=== PATIENT | male | born 1935 | race African-American/Black ===

== ENCOUNTER 2020-04-11 10:31 | Emergency (ER) | payer OTHER ==
[2020-04-11 11:21] VITALS: BMI 26.6
[2020-04-11] MEDS ORDERED: SODIUM CHLORIDE 2,177 ML IV ONE (11:29)
[2020-04-11 12:07] LABS: BASO % 0.3 % (0-2.0); EOS % 0.1 % (0-4.5); HEMATOCRIT 42.1 % (35.4-49); LYMPH % 21.3 % (8-40); MCH 31.6 pg (25.7-33.7); MCHC 33.3 g/dl (32.0-35.9); MEAN PLT VOLUME 9.4 fl (7.5-11.1); MONO % 5.7 % (3.8-10.2); NEUT % 72.6 % (42.8-82.8); PLATELET COUNT 158 K/MM3 (134-434); RBC 4.44 M/mm3 (4.00-5.60); RDW 12.6 % (11.9-15.9)
[2020-04-11 12:16] LABS: INR 1.18 (0.83-1.09); PROTHROMBIN TIME (PATIENT) 14.5 SEC (9.7-13.0)
[2020-04-11 12:41] LABS: CHLORIDE 102 mmol/L (98-107); POTASSIUM 4.1 mmol/L (3.5-5.1); SODIUM 136 mmol/L (136-145)
[2020-04-11 12:43] LABS: CALCIUM 8.5 mg/dL (8.5-10.1)
[2020-04-11 12:44] LABS: ALBUMIN 3.9 g/dl (3.4-5.0); ANION GAP 7 MMOL/L (8-16); BLOOD UREA NITROGEN 21.5 mg/dL (7-18); CO2 27 mmol/L (21-32); GLUCOSE,RANDOM 105 mg/dL (74-106)
[2020-04-11 12:47] LABS: CREATININE 1.5 mg/dL (0.55-1.3); SGOT/AST 59 U/L (15-37); SGPT/ALT 54 U/L (13-61)
[2020-04-11 12:49] LABS: BILIRUBIN,TOTAL 0.6 mg/dL (0.2-1)
[2020-04-11 12:50] LABS: ALK PHOS 67 U/L (45-117)
[2020-04-11 15:27] VITALS: TEMP 99.9
[2020-04-11 18:04] VITALS: BP 161/80; PULSE 84
== END 2020-04-11 18:06 | disposition home or self-care (01) ==
LOC: JER 10:31
PROC: 3E0337Z Introduction of Electrolytic and Water Balance Substance into Peripheral Vein, Percutaneous Approach (ICD-10-PCS; principal; 2020-04-11)
DX: L97.919 Non-pressure chronic ulcer of unspecified part of right lower leg with unspecified severity (principal); L97.929 Non-pressure chronic ulcer of unspecified part of left lower leg with unspecified severity
CPT/HCPCS: 36415; 71045-TC-FY; 73590-TC-RT-FY; 73610-TC-RT-FY; 73630-TC-RT-FY; 73700-TC-RT; 80053; 83605; 84484; 85025; 85610; 85730; 86140; 86850; 86900; 86901; 87040; 93005; 93010; 99285-25

== ENCOUNTER 2020-06-15 05:05 | Day surgery (SDC) | payer OTHER ==
[2020-06-15] MEDS ORDERED: LABETALOL HCL 5 MG/1 ML (100MG/20 ML VIAL) IVPUSH ONE ×2 (10:50→11:15)
[2020-06-15 15:14] VITALS: TEMP 98.1
[2020-06-15 15:18] VITALS: BP 168/84; PULSE 65
== END 2020-06-15 15:14 | disposition home or self-care (01) ==
LOC: JRADIR 05:05
PROVIDERS: ATTEND Internal Medicine Hematology & Oncology
PROC: BW4GZZZ Ultrasonography of Pelvic Region (ICD-10-PCS; principal; 2020-06-15)
PROC: 07BH3ZX Excision of Right Inguinal Lymphatic, Percutaneous Approach, Diagnostic (ICD-10-PCS; 2020-06-15)
DX: C77.4 Secondary and unspecified malignant neoplasm of inguinal and lower limb lymph nodes (principal); C43.9 Malignant melanoma of skin, unspecified
CPT/HCPCS: 38505; 76942-TC; 87899

== ENCOUNTER 2020-06-24 04:39 | Day surgery (SDC) | payer OTHER ==
[2020-06-22 13:12] VITALS: BMI 29.1
[2020-06-24] MEDS ORDERED: MIDAZOLAM HCL 2 MG/2 ML SINGLE DOSE VIAL ONE (10:36)
[2020-06-24] MEDS ORDERED: LABETALOL HCL 5 MG/1 ML (100MG/20 ML VIAL) ONE (10:52)
[2020-06-24] MEDS ORDERED: LABETALOL HCL 5 MG/1 ML (100MG/20 ML VIAL) IVPUSH ONE (10:55)
[2020-06-24] MEDS ORDERED: MIDAZOLAM HCL 2 MG/2 ML SINGLE DOSE VIAL IVPUSH ONE (11:12)
[2020-06-24 14:00] VITALS: BP 167/83; PULSE 71; TEMP 96.9
== END 2020-06-24 13:55 | disposition home or self-care (01) ==
LOC: JRADIR 04:39
PROVIDERS: ATTEND Clinical Nurse Specialist Family Health
PROC: 02HV33Z Insertion of Infusion Device into Superior Vena Cava, Percutaneous Approach (ICD-10-PCS; principal; 2020-06-24)
DX: C43.9 Malignant melanoma of skin, unspecified (principal)
CPT/HCPCS: 36561; C1751

== ENCOUNTER 2020-06-25 07:37 | Day surgery (SDC) | payer OTHER ==
[2020-06-25] MEDS ORDERED: NIVOLUMAB 240 MG in SODIUM CHLORIDE 100 ML IVPB ONE (10:00)
[2020-06-25 11:06] LABS: BASO % 0.6 % (0-2.0); EOS % 16.6 % (0-4.5); HEMATOCRIT 41.1 % (35.4-49); HEMOGLOBIN 13.9 GM/dL (11.7-16.9); LYMPH % 37.5 % (8-40); MCH 32.6 pg (25.7-33.7); MCHC 33.9 g/dl (32.0-35.9); MEAN CELL VOLUME 96.4 fl (80-96); MEAN PLT VOLUME 8.6 fl (7.5-11.1); MONO % 7.1 % (3.8-10.2); NEUT % 38.2 % (42.8-82.8); PLATELET COUNT 219 K/MM3 (134-434); RBC 4.26 M/mm3 (4.00-5.60); RDW 13.9 % (11.9-15.9); WHITE BLOOD COUNT 6.8 K/mm3 (4.0-10.0)
[2020-06-25 11:40] LABS: ALBUMIN 3.9 g/dl (3.4-5.0); BLOOD UREA NITROGEN 10.7 mg/dL (7-18); CALCIUM 9.3 mg/dL (8.5-10.1)
[2020-06-25 11:45] LABS: BILIRUBIN,TOTAL 0.4 mg/dL (0.2-1); TOT PROT 7.6 g/dl (6.4-8.2)
[2020-06-25] MEDS ORDERED: amLODIPine BESYLATE 2.5 MG TABLET (FP) PO ONE (14:09)
[2020-06-25 18:24] VITALS: BP 158/93; PULSE 73; TEMP 97.9
[2020-06-25] MEDS ORDERED: PORTA CATH FLUSH 10 ML IVPUSH ONE (18:24)
== END 2020-06-25 14:20 | disposition home or self-care (01) ==
LOC: JONCCHEMO 07:37
PROVIDERS: ATTEND Internal Medicine Hematology & Oncology
DX: Z51.11 Encounter for antineoplastic chemotherapy (principal); C43.72 Malignant melanoma of left lower limb, including hip; C77.4 Secondary and unspecified malignant neoplasm of inguinal and lower limb lymph nodes; C79.51 Secondary malignant neoplasm of bone
CPT/HCPCS: 36415; 80053; 84439; 84443; 85025; 96413; J9299

== ENCOUNTER 2020-07-09 07:54 | Day surgery (SDC) | payer OTHER ==
[2020-07-09] MEDS ORDERED: NIVOLUMAB 240 MG in SODIUM CHLORIDE 100 ML IVPB ONE (10:00)
[2020-07-09 11:52] LABS: BASO % 0.3 % (0-2.0); EOS % 20.4 % (0-4.5); HEMATOCRIT 42.3 % (35.4-49); LYMPH % 34.3 % (8-40); MCH 32.1 pg (25.7-33.7); MCHC 33.2 g/dl (32.0-35.9); MEAN CELL VOLUME 96.7 fl (80-96); MEAN PLT VOLUME 8.6 fl (7.5-11.1); MONO % 5.6 % (3.8-10.2); NEUT % 39.4 % (42.8-82.8); PLATELET COUNT 193 K/MM3 (134-434); RBC 4.37 M/mm3 (4.00-5.60); RDW 13.4 % (11.9-15.9); WHITE BLOOD COUNT 7.1 K/mm3 (4.0-10.0)
[2020-07-09 12:12] LABS: POTASSIUM 3.9 mmol/L (3.5-5.1)
[2020-07-09 12:17] LABS: BLOOD UREA NITROGEN 14.3 mg/dL (7-18); CALCIUM 9.8 mg/dL (8.5-10.1)
[2020-07-09 12:20] LABS: CREATININE 1.1 mg/dL (0.55-1.3)
[2020-07-09 12:24] LABS: BILIRUBIN,TOTAL 0.3 mg/dL (0.2-1)
[2020-07-09 13:53] LABS: ANISOCYTOSIS 0; MACROCYTOSIS 0; PLATELET ESTIMATE NORMAL
[2020-07-09 14:14] VITALS: BP 146/82; PULSE 72; TEMP 98.8
== END 2020-07-09 14:05 | disposition home or self-care (01) ==
LOC: JONCCHEMO 07:54
PROVIDERS: ATTEND Internal Medicine Hematology & Oncology
DX: Z51.11 Encounter for antineoplastic chemotherapy (principal); C43.72 Malignant melanoma of left lower limb, including hip; C77.4 Secondary and unspecified malignant neoplasm of inguinal and lower limb lymph nodes; C79.51 Secondary malignant neoplasm of bone
CPT/HCPCS: 36415; 80053; 84439; 84443; 85025; 96413; J9299

== ENCOUNTER 2020-07-23 07:55 | Day surgery (SDC) | payer OTHER ==
[2020-07-23] MEDS ORDERED: NIVOLUMAB 240 MG in SODIUM CHLORIDE 100 ML IVPB ONE (10:00)
[2020-07-23 11:28] LABS: BASO % 0.5 % (0-2.0); EOS % 10.3 % (0-4.5); HEMATOCRIT 41.7 % (35.4-49); HEMOGLOBIN 14.3 GM/dL (11.7-16.9); LYMPH % 22.3 % (8-40); MCH 32.5 pg (25.7-33.7); MCHC 34.4 g/dl (32.0-35.9); MEAN CELL VOLUME 94.5 fl (80-96); MEAN PLT VOLUME 8.1 fl (7.5-11.1); MONO % 8.2 % (3.8-10.2); NEUT % 58.7 % (42.8-82.8); PLATELET COUNT 201 K/MM3 (134-434); RBC 4.41 M/mm3 (4.00-5.60); RDW 13.3 % (11.9-15.9); WHITE BLOOD COUNT 10.6 K/mm3 (4.0-10.0)
[2020-07-23 11:43] LABS: POTASSIUM 4.6 mmol/L (3.5-5.1)
[2020-07-23 11:45] LABS: BLOOD UREA NITROGEN 11.4 mg/dL (7-18); CALCIUM 9.5 mg/dL (8.5-10.1)
[2020-07-23 11:49] LABS: CREATININE 1.2 mg/dL (0.55-1.3)
[2020-07-23 11:50] LABS: BILIRUBIN,TOTAL 0.4 mg/dL (0.2-1); TOT PROT 7.8 g/dl (6.4-8.2)
[2020-07-23 17:41] VITALS: BP 171/93; TEMP 99
[2020-07-23 18:04] VITALS: PULSE 83
== END 2020-07-23 13:45 | disposition home or self-care (01) ==
LOC: JONCCHEMO 07:55
PROVIDERS: ATTEND Internal Medicine Hematology & Oncology
DX: Z51.11 Encounter for antineoplastic chemotherapy (principal); C43.72 Malignant melanoma of left lower limb, including hip; C77.4 Secondary and unspecified malignant neoplasm of inguinal and lower limb lymph nodes; C79.51 Secondary malignant neoplasm of bone
CPT/HCPCS: 36415; 80053; 84439; 84443; 85025; 96413; J9299

== ENCOUNTER → 2020-08-04 | Day surgery (SDC) | payer OTHER ==
[2020-08-03 12:31] VITALS: BMI 31.4
[~2020-08-04] MED LIST: MIDAZOLAM HCL 2 MG/2 ML SINGLE DOSE VIAL IVPUSH ONE; MIDAZOLAM HCL 2 MG/2 ML SINGLE DOSE VIAL ONE; SODIUM CHLORIDE 500 ML IV SCH
[2020-08-04 16:28] VITALS: PULSE 72
[2020-08-04 16:46] VITALS: BP 144/78; TEMP 98.2
== END | disposition home or self-care (01) ==
LOC: JRADIR 04:48
PROVIDERS: ATTEND Internal Medicine Hematology & Oncology
PROC: 0QB33ZX Excision of Left Pelvic Bone, Percutaneous Approach, Diagnostic (ICD-10-PCS; principal; 2020-08-04)
DX: C43.72 Malignant melanoma of left lower limb, including hip (principal); C79.51 Secondary malignant neoplasm of bone
CPT/HCPCS: 20225

== ENCOUNTER 2020-08-06 08:07 | Day surgery (SDC) | payer OTHER ==
[2020-08-06] MEDS ORDERED: NIVOLUMAB 240 MG in SODIUM CHLORIDE 100 ML IVPB ONE (10:00)
[2020-08-06 11:25] LABS: BASO % 0.3 % (0-2.0); EOS % 14.2 % (0-4.5); HEMATOCRIT 40.1 % (35.4-49); HEMOGLOBIN 13.6 GM/dL (11.7-16.9); LYMPH % 29.2 % (8-40); MCH 31.8 pg (25.7-33.7); MCHC 33.9 g/dl (32.0-35.9); MEAN CELL VOLUME 93.9 fl (80-96); MEAN PLT VOLUME 8.6 fl (7.5-11.1); MONO % 7.6 % (3.8-10.2); NEUT % 48.7 % (42.8-82.8); PLATELET COUNT 186 K/MM3 (134-434); RBC 4.27 M/mm3 (4.00-5.60); RDW 13.4 % (11.9-15.9); WHITE BLOOD COUNT 7.2 K/mm3 (4.0-10.0)
[2020-08-06 11:47] LABS: ALBUMIN 3.9 g/dl (3.4-5.0); BLOOD UREA NITROGEN 13.5 mg/dL (7-18)
[2020-08-06 11:50] LABS: CREATININE 1.1 mg/dL (0.55-1.3)
[2020-08-06 11:52] LABS: BILIRUBIN,TOTAL 0.4 mg/dL (0.2-1); TOT PROT 7.6 g/dl (6.4-8.2)
[2020-08-06 16:33] VITALS: BP 156/78; PULSE 71; TEMP 98.2
[2020-08-06] MEDS ORDERED: PORTA CATH FLUSH 10 ML IVPUSH ONE (16:33)
== END 2020-08-06 13:20 | disposition home or self-care (01) ==
LOC: JONCCHEMO 08:07
PROVIDERS: ATTEND Internal Medicine Hematology & Oncology
DX: Z51.11 Encounter for antineoplastic chemotherapy (principal); C43.72 Malignant melanoma of left lower limb, including hip; C79.51 Secondary malignant neoplasm of bone; C77.4 Secondary and unspecified malignant neoplasm of inguinal and lower limb lymph nodes
CPT/HCPCS: 36415; 80053; 84439; 84443; 85025; 96413; J9299

== ENCOUNTER 2020-08-26 07:17 | Day surgery (SDC) | payer OTHER ==
[~2020-08-26 07:17] MED LIST changes: -MIDAZOLAM HCL 2 MG/2 ML SINGLE DOSE VIAL IVPUSH ONE; -MIDAZOLAM HCL 2 MG/2 ML SINGLE DOSE VIAL ONE; +NIVOLUMAB 240 MG in SODIUM CHLORIDE 100 ML IVPB ONE; -SODIUM CHLORIDE 500 ML IV SCH
[2020-08-26 14:28] LABS: BASO % 0.6 % (0-2.0); EOS % 20.2 % (0-4.5); HEMATOCRIT 41.6 % (35.4-49); HEMOGLOBIN 14.3 GM/dL (11.7-16.9); LYMPH % 29.4 % (8-40); MCH 31.7 pg (25.7-33.7); MCHC 34.4 g/dl (32.0-35.9); MEAN CELL VOLUME 92.2 fl (80-96); MEAN PLT VOLUME 8.6 fl (7.5-11.1); MONO % 9.4 % (3.8-10.2); NEUT % 40.4 % (42.8-82.8); PLATELET COUNT 213 K/MM3 (134-434); RBC 4.51 M/mm3 (4.00-5.60); RDW 13.1 % (11.9-15.9); WHITE BLOOD COUNT 10.8 K/mm3 (4.0-10.0)
[2020-08-26 14:58] LABS: BLOOD UREA NITROGEN 15.6 mg/dL (7-18); CALCIUM 9.2 mg/dL (8.5-10.1)
[2020-08-26 14:59] LABS: ALBUMIN 4.2 g/dl (3.4-5.0)
[2020-08-26 15:02] LABS: CREATININE 1.2 mg/dL (0.55-1.3)
[2020-08-26 15:03] LABS: BILIRUBIN,TOTAL 0.4 mg/dL (0.2-1)
[2020-08-26 15:03] LABS: ANISOCYTOSIS 0; HELMET CELLS 0; HOWELL-JOLLY BODIES 0; MACROCYTOSIS 0; OVALOCYTE 0; PLATELET ESTIMATE NORMAL; ROULEAU 0; SICKELED CELLS 0; TARGET CELLS 0; TEAR DROP CELLS 0; TOXIC GRANULATION 0
[2020-08-26] MEDS ORDERED: NIVOLUMAB 240 MG in SODIUM CHLORIDE 100 ML IVPB ONE (15:30)
[2020-08-26 16:22] VITALS: TEMP 98.4
[2020-08-26 16:33] VITALS: BP 152/85; PULSE 74
[2020-08-26] MEDS ORDERED: PORTA CATH FLUSH 10 ML IVPUSH ONE (16:35)
== END 2020-08-26 16:47 | disposition home or self-care (01) ==
LOC: JONCCHEMO 07:17
PROVIDERS: ATTEND Internal Medicine Hematology & Oncology
DX: Z51.11 Encounter for antineoplastic chemotherapy (principal); C43.72 Malignant melanoma of left lower limb, including hip; C79.51 Secondary malignant neoplasm of bone; C77.4 Secondary and unspecified malignant neoplasm of inguinal and lower limb lymph nodes
CPT/HCPCS: 36415; 80053; 84439; 84443; 85025; 96413; J9299

== ENCOUNTER 2020-09-10 07:17 | Day surgery (SDC) | payer OTHER ==
[2020-09-10] MEDS ORDERED: NIVOLUMAB 240 MG in SODIUM CHLORIDE 100 ML IVPB ONE ×2 (12:00→13:30)
[2020-09-10 13:13] LABS: BASO % 0.3 % (0-2.0); EOS % 19.2 % (0-4.5); HEMATOCRIT 39.3 % (35.4-49); HEMOGLOBIN 13.4 GM/dL (11.7-16.9); LYMPH % 29.9 % (8-40); MCH 31.7 pg (25.7-33.7); MEAN CELL VOLUME 93.1 fl (80-96); MEAN PLT VOLUME 8.8 fl (7.5-11.1); MONO % 7.8 % (3.8-10.2); NEUT % 42.8 % (42.8-82.8); PLATELET COUNT 186 K/MM3 (134-434); RBC 4.22 M/mm3 (4.00-5.60); WHITE BLOOD COUNT 7.7 K/mm3 (4.0-10.0)
[2020-09-10 13:20] LABS: BLOOD UREA NITROGEN 14.5 mg/dL (7-18)
[2020-09-10 13:24] LABS: CREATININE 1.2 mg/dL (0.55-1.3)
[2020-09-10 13:25] LABS: BILIRUBIN,TOTAL 0.6 mg/dL (0.2-1); TOT PROT 7.9 g/dl (6.4-8.2)
[2020-09-10 15:48] VITALS: BP 146/78; PULSE 73; TEMP 98.2
== END 2020-09-10 15:00 | disposition home or self-care (01) ==
LOC: JONCCHEMO 07:17
PROVIDERS: ATTEND Internal Medicine Hematology & Oncology
DX: Z51.11 Encounter for antineoplastic chemotherapy (principal); C43.72 Malignant melanoma of left lower limb, including hip; C79.51 Secondary malignant neoplasm of bone; C77.4 Secondary and unspecified malignant neoplasm of inguinal and lower limb lymph nodes
CPT/HCPCS: 36415; 80053; 84439; 84443; 85025; 96413; J9299

== ENCOUNTER 2020-09-24 08:31 | Day surgery (SDC) | payer OTHER ==
[2020-09-24] MEDS ORDERED: NIVOLUMAB 240 MG in SODIUM CHLORIDE 100 ML IVPB ONE ×2 (10:00→14:00)
[2020-09-24 12:33] LABS: BASO % 0.1 % (0-2.0); EOS % 17.6 % (0-4.5); HEMOGLOBIN 13.2 GM/dL (11.7-16.9); LYMPH % 28.8 % (8-40); MCH 31.6 pg (25.7-33.7); MCHC 33.8 g/dl (32.0-35.9); MEAN CELL VOLUME 93.4 fl (80-96); MEAN PLT VOLUME 8.4 fl (7.5-11.1); MONO % 9.8 % (3.8-10.2); NEUT % 43.7 % (42.8-82.8); PLATELET COUNT 256 K/MM3 (134-434); RBC 4.17 M/mm3 (4.00-5.60); WHITE BLOOD COUNT 8.6 K/mm3 (4.0-10.0)
[2020-09-24 13:04] LABS: CALCIUM 9.2 mg/dL (8.5-10.1)
[2020-09-24 13:05] LABS: BLOOD UREA NITROGEN 13.5 mg/dL (7-18)
[2020-09-24 13:08] LABS: CREATININE 1.3 mg/dL (0.55-1.3)
[2020-09-24 13:10] LABS: BILIRUBIN,TOTAL 0.5 mg/dL (0.2-1); TOT PROT 7.9 g/dl (6.4-8.2)
[2020-09-24 18:22] VITALS: PULSE 85; TEMP 98.4
[2020-09-24 18:26] VITALS: BP 116/71
== END 2020-09-24 14:20 | disposition home or self-care (01) ==
LOC: JONCCHEMO 08:31
PROVIDERS: ATTEND Internal Medicine Hematology & Oncology
DX: Z51.11 Encounter for antineoplastic chemotherapy (principal); C43.72 Malignant melanoma of left lower limb, including hip; C79.51 Secondary malignant neoplasm of bone; C77.4 Secondary and unspecified malignant neoplasm of inguinal and lower limb lymph nodes
CPT/HCPCS: 36415; 80053; 84439; 84443; 85025; 96413; J9299

== ENCOUNTER 2020-10-08 07:07 | Day surgery (SDC) | payer OTHER ==
[2020-10-08] MEDS ORDERED: NIVOLUMAB 240 MG in SODIUM CHLORIDE 100 ML IVPB ONE (10:00)
[2020-10-08 12:19] LABS: BASO % 0.1 % (0-2.0); EOS % 19.6 % (0-4.5); HEMATOCRIT 39.9 % (35.4-49); HEMOGLOBIN 13.3 GM/dL (11.7-16.9); LYMPH % 28.9 % (8-40); MCHC 33.3 g/dl (32.0-35.9); MEAN PLT VOLUME 8.2 fl (7.5-11.1); MONO % 8.2 % (3.8-10.2); NEUT % 43.2 % (42.8-82.8); PLATELET COUNT 270 10^3/uL (134-434); RBC 4.29 M/mm3 (4.00-5.60); WHITE BLOOD COUNT 8.8 K/mm3 (4.0-10.0)
[2020-10-08 12:40] LABS: CALCIUM 9.1 mg/dL (8.5-10.1)
[2020-10-08 12:41] LABS: ALBUMIN 3.9 g/dl (3.4-5.0); BLOOD UREA NITROGEN 14.4 mg/dL (7-18)
[2020-10-08 12:44] LABS: CREATININE 1.2 mg/dL (0.55-1.3)
[2020-10-08 12:45] LABS: BILIRUBIN,TOTAL 0.5 mg/dL (0.2-1); TOT PROT 7.9 g/dl (6.4-8.2)
[2020-10-08 16:33] VITALS: BP 129/75; PULSE 75; TEMP 98.8
[2020-10-08] MEDS ORDERED: PORTA CATH FLUSH 10 ML IVPUSH ONE (16:33)
[2020-10-10 14:11] LABS: LIVER KIDNEY MICROSOMIAL AB <20.1 Units (0.0-20.0)
[2020-10-13 10:07] LABS: HEP B CORE AB, TOT Negative (Negative)
== END 2020-10-08 15:05 | disposition home or self-care (01) ==
LOC: JONCCHEMO 07:07
PROVIDERS: ATTEND Internal Medicine Hematology & Oncology
DX: Z51.11 Encounter for antineoplastic chemotherapy (principal); C43.72 Malignant melanoma of left lower limb, including hip; C79.51 Secondary malignant neoplasm of bone; C77.4 Secondary and unspecified malignant neoplasm of inguinal and lower limb lymph nodes
CPT/HCPCS: 36415; 80053; 82550; 82553; 82977; 83520; 84439; 84443; 85025; 86038; 86256; 86376; 86704; 86706; 86707; 86708; 86709; 87340; 96413; J9299

== ENCOUNTER 2020-10-22 07:04 | Day surgery (SDC) | payer OTHER ==
[2020-10-22] MEDS ORDERED: NIVOLUMAB 240 MG in SODIUM CHLORIDE 100 ML IVPB ONE (10:00)
[2020-10-22 11:19] LABS: BASO % 0.2 % (0-2.0); HEMATOCRIT 38.9 % (35.4-49); HEMOGLOBIN 12.8 GM/dL (11.7-16.9); LYMPH % 19.9 % (8-40); MCH 30.7 pg (25.7-33.7); MCHC 32.8 g/dl (32.0-35.9); MEAN CELL VOLUME 93.7 fl (80-96); MEAN PLT VOLUME 8.2 fl (7.5-11.1); MONO % 9.3 % (3.8-10.2); NEUT % 55.6 % (42.8-82.8); PLATELET COUNT 246 10^3/uL (134-434); RBC 4.16 M/mm3 (4.00-5.60); RDW 13.2 % (11.9-15.9); WHITE BLOOD COUNT 6.1 K/mm3 (4.0-10.0)
[2020-10-22 11:38] LABS: ALBUMIN 3.7 g/dl (3.4-5.0)
[2020-10-22 11:39] LABS: BLOOD UREA NITROGEN 18.8 mg/dL (7-18)
[2020-10-22 11:42] LABS: CREATININE 1.2 mg/dL (0.55-1.3)
[2020-10-22 11:43] LABS: BILIRUBIN,TOTAL 1.5 mg/dL (0.2-1); TOT PROT 7.8 g/dl (6.4-8.2)
[2020-10-22] MEDS ORDERED: ALTEPLASE 2 MG VIAL IVPUSH ONE (12:00)
[2020-10-22] MEDS ORDERED: methylPREDNISolone NA SUCC 40 MG/1 ML VIAL IVPB ONE (12:32)
[2020-10-22] MEDS ORDERED: PANTOPRAZOLE SODIUM 40 MG VIAL IVPB ONE (12:33)
[2020-10-22] MEDS ORDERED: PANTOPRAZOLE SODIUM 40 MG VIAL IVPUSH ONE (13:00)
[2020-10-22 17:29] VITALS: PULSE 69; TEMP 98.3
[2020-10-22 17:52] VITALS: BP 120/64
== END 2020-10-22 13:45 | disposition home or self-care (01) ==
LOC: JONCCHEMO 07:04
PROVIDERS: ATTEND Internal Medicine Hematology & Oncology
PROC: 3E043NZ Introduction of Analgesics, Hypnotics, Sedatives into Central Vein, Percutaneous Approach (ICD-10-PCS; principal; 2020-10-22)
PROC: 3E043GC Introduction of Other Therapeutic Substance into Central Vein, Percutaneous Approach (ICD-10-PCS; 2020-10-22)
DX: Z76.89 Persons encountering health services in other specified circumstances (principal); C43.9 Malignant melanoma of skin, unspecified; Z86.16 Personal history of COVID-19; I10 Essential (primary) hypertension; E78.00 Pure hypercholesterolemia, unspecified; Z86.711 Personal history of pulmonary embolism
CPT/HCPCS: 36415; 80053; 85025; 96374; 96375; J2997

== ENCOUNTER → 2020-11-05 | Day surgery (SDC) | payer OTHER ==
[2020-11-05 10:36] LABS: BASO % 0.7 % (0-2.0); EOS % 1.4 % (0-4.5); HEMATOCRIT 43.6 % (35.4-49); HEMOGLOBIN 14.3 GM/dL (11.7-16.9); LYMPH % 17.8 % (8-40); MCHC 32.7 g/dl (32.0-35.9); MEAN CELL VOLUME 94.7 fl (80-96); MEAN PLT VOLUME 8.6 fl (7.5-11.1); MONO % 5.6 % (3.8-10.2); NEUT % 74.5 % (42.8-82.8); PLATELET COUNT 276 10^3/uL (134-434); RBC 4.61 M/mm3 (4.00-5.60); RDW 13.5 % (11.9-15.9); WHITE BLOOD COUNT 11.7 K/mm3 (4.0-10.0)
[2020-11-05 10:56] LABS: CALCIUM 9.1 mg/dL (8.5-10.1)
[2020-11-05 10:57] LABS: ALBUMIN 3.8 g/dl (3.4-5.0)
[2020-11-05 11:00] LABS: CREATININE 1.1 mg/dL (0.55-1.3)
[2020-11-05 11:01] LABS: BILIRUBIN,TOTAL 0.4 mg/dL (0.2-1)
[2020-11-05 11:02] LABS: TOT PROT 7.7 g/dl (6.4-8.2)
== END | disposition home or self-care (01) ==
LOC: JONCCHEMO 05:12
PROVIDERS: ATTEND Internal Medicine Hematology & Oncology
DX: Z53.8 Procedure and treatment not carried out for other reasons (principal)
CPT/HCPCS: 36415; 80053; 85025; 96365

== ENCOUNTER 2021-01-11 23:37 | Inpatient (IN) | payer OTHER ==
[2021-01-12] MEDS ORDERED: methylPREDNISolone NA SUCC 125 MG/2 ML VIAL IVPB ONE (01:09)
[2021-01-12] MEDS ORDERED: methylPREDNISolone NA SUCC 125 MG/2 ML VIAL ONE (01:41)
[2021-01-12 02:23] LABS: BASO % 0.1 % (0-2.0); HEMOGLOBIN 12.7 GM/dL (11.7-16.9); LYMPH % 10.1 % (8-40); MCH 33.1 pg (25.7-33.7); MCHC 34.3 g/dl (32.0-35.9); MEAN CELL VOLUME 96.6 fl (80-96); MEAN PLT VOLUME 7.8 fl (7.5-11.1); MONO % 5.9 % (3.8-10.2); NEUT % 83.9 % (42.8-82.8); PLATELET COUNT 154 10^3/uL (134-434); RBC 3.83 M/mm3 (4.00-5.60); RDW 14.9 % (11.9-15.9); WHITE BLOOD COUNT 10.6 K/mm3 (4.0-10.0)
[2021-01-12 02:42] LABS: CALCIUM 9.1 mg/dL (8.5-10.1)
[2021-01-12 02:43] LABS: ALBUMIN 3.3 g/dl (3.4-5.0); BLOOD UREA NITROGEN 27.4 mg/dL (7-18)
[2021-01-12 02:46] LABS: CREATININE 1.1 mg/dL (0.55-1.3)
[2021-01-12 02:47] LABS: BILIRUBIN,TOTAL 1.5 mg/dL (0.2-1); TOT PROT 6.9 g/dl (6.4-8.2)
[2021-01-12 04:21] LABS: URINE APPEARANCE CLEAR; URINE COLOR DK YELLOW; URINE GLUCOSE (UA) 100 (NEGATIVE)
[2021-01-12 04:22] LABS: PH,URINE 5.5 (5.0-8.0); URINE BILIRUBIN SMALL (NEGATIVE); URINE KETONE NEGATIVE (NEGATIVE); URINE PROTEIN 30 (NEGATIVE)
[2021-01-12 04:23] LABS: URINE LEUK ESTERASE NEGATIVE (NEGATIVE); URINE NITRITE NEGATIVE (NEGATIVE); URINE UROBILINOGEN 4.0 E.U/dl mg/dL (0.2-1.0)
[2021-01-12] MEDS ORDERED: amLODIPine BESYLATE 5 MG TABLET (FP) ONE (10:33)
[2021-01-12] MEDS ORDERED: ASPIRIN 81 MG CHEWABLE TABLETS ONE (10:33)
[2021-01-12] MEDS ORDERED: LISINOPRIL 20 MG TABLET ONE (10:33)
[2021-01-12] MEDS ORDERED: ENOXAPARIN NA (PORCINE) 40 MG/0.4 ML DISP.SYRIN SQ ONE (10:34)
[2021-01-12] MEDS: ENOXAPARIN NA (PORCINE) 40 MG/0.4 ML DISP.SYRIN SQ SCH (10:57)
[2021-01-12] MEDS: ASPIRIN 81 MG CHEWABLE TABLETS PO SCH (10:57)
[2021-01-12] MEDS: LISINOPRIL 20 MG TABLET PO SCH (10:58)
[2021-01-12] MEDS: amLODIPine BESYLATE 5 MG TABLET (FP) PO SCH (10:58)
[2021-01-12 11:46] LABS: HEMATOCRIT 38.3 % (35.4-49); HEMOGLOBIN 13.3 GM/dL (11.7-16.9); MCH 33.3 pg (25.7-33.7); MCHC 34.6 g/dl (32.0-35.9); PLATELET COUNT 178 10^3/uL (134-434); RBC 3.99 M/mm3 (4.00-5.60); RDW 14.7 % (11.9-15.9); WHITE BLOOD COUNT 13.9 K/mm3 (4.0-10.0)
[2021-01-12 12:06] LABS: PROTHROMBIN TIME (PATIENT) 12.3 SEC (9.7-13.0)
[2021-01-12 12:08] LABS: ACTIVATED PTT 22.3 SECONDS (25.2-36.5)
[2021-01-12 13:34] VITALS: BMI 29.6
[2021-01-12 14:34] LABS: CALCIUM 9.2 mg/dL (8.5-10.1); MAGNESIUM 2.5 mg/dL (1.8-2.4)
[2021-01-12 14:35] LABS: ALBUMIN 3.6 g/dl (3.4-5.0); BLOOD UREA NITROGEN 24.8 mg/dL (7-18)
[2021-01-12 14:38] LABS: BILIRUBIN,DIRECT 0.9 mg/dL (0.0-0.2); PHOSPHOROUS 3.2 mg/dL (2.5-4.9)
[2021-01-12 14:39] LABS: TOT PROT 7.2 g/dl (6.4-8.2)
[2021-01-12 14:40] LABS: BILIRUBIN,TOTAL 1.2 mg/dL (0.2-1)
[2021-01-13 08:30] LABS: BASO % 0.1 % (0-2.0); HEMOGLOBIN 12.2 GM/dL (11.7-16.9); LYMPH % 11.7 % (8-40); MCH 33.1 pg (25.7-33.7); MEAN CELL VOLUME 97.4 fl (80-96); MEAN PLT VOLUME 8.6 fl (7.5-11.1); MONO % 6.1 % (3.8-10.2); NEUT % 82.1 % (42.8-82.8); PLATELET COUNT 160 10^3/uL (134-434); RBC 3.69 M/mm3 (4.00-5.60); RDW 14.9 % (11.9-15.9); WHITE BLOOD COUNT 8.6 K/mm3 (4.0-10.0)
[2021-01-13 08:35] LABS: INR 0.97 (0.83-1.09); PROTHROMBIN TIME (PATIENT) 11.9 SEC (9.7-13.0)
[2021-01-13 08:55] LABS: CALCIUM 8.6 mg/dL (8.5-10.1)
[2021-01-13 08:56] LABS: ALBUMIN 2.9 g/dl (3.4-5.0); BLOOD UREA NITROGEN 24.5 mg/dL (7-18); MAGNESIUM 2.4 mg/dL (1.8-2.4)
[2021-01-13 08:57] LABS: BILIRUBIN,DIRECT 0.7 mg/dL (0.0-0.2)
[2021-01-13 08:58] LABS: CREATININE 0.9 mg/dL (0.55-1.3)
[2021-01-13 08:59] LABS: BILIRUBIN,TOTAL 1.7 mg/dL (0.2-1); TOT PROT 6.2 g/dl (6.4-8.2)
[2021-01-13] MEDS ORDERED: predniSONE 20 MG TABLET (UD) PO SCH (10:00)
[2021-01-13] MEDS: ENOXAPARIN NA (PORCINE) 40 MG/0.4 ML DISP.SYRIN SQ SCH (11:08)
[2021-01-13] MEDS: methylPREDNISolone NA SUCC 40 MG/1 ML VIAL IVPUSH SCH ×2 (11:08→21:03)
[2021-01-13] MEDS: PANTOPRAZOLE 40 MG TABLET PO SCH (11:09)
[2021-01-13] MEDS: ASPIRIN 81 MG CHEWABLE TABLETS PO SCH (11:09)
[2021-01-13] MEDS: LISINOPRIL 20 MG TABLET PO SCH (11:09)
[2021-01-13] MEDS: amLODIPine BESYLATE 5 MG TABLET (FP) PO SCH (11:09)
[2021-01-13] MEDS ORDERED: PT OWN MED DRAWER 7, Y5N ONE (17:19)
[2021-01-13] MEDS: ATOVAQUONE 750 MG/5 ML (UNIT-DOSE PACKAGING) PO SCH (17:26)
[2021-01-14 08:27] LABS: BASO % 0.1 % (0-2.0); HEMATOCRIT 36.2 % (35.4-49); HEMOGLOBIN 12.4 GM/dL (11.7-16.9); LYMPH % 14.4 % (8-40); MCH 33.2 pg (25.7-33.7); MCHC 34.1 g/dl (32.0-35.9); MEAN CELL VOLUME 97.2 fl (80-96); MEAN PLT VOLUME 8.6 fl (7.5-11.1); MONO % 4.3 % (3.8-10.2); NEUT % 81.2 % (42.8-82.8); PLATELET COUNT 163 10^3/uL (134-434); RBC 3.72 M/mm3 (4.00-5.60); RDW 14.6 % (11.9-15.9); WHITE BLOOD COUNT 7.9 K/mm3 (4.0-10.0)
[2021-01-14 08:31] LABS: INR 0.99 (0.83-1.09); PROTHROMBIN TIME (PATIENT) 12.2 SEC (9.7-13.0)
[2021-01-14 08:44] LABS: CALCIUM 8.6 mg/dL (8.5-10.1)
[2021-01-14 08:45] LABS: MAGNESIUM 2.6 mg/dL (1.8-2.4)
[2021-01-14 08:47] LABS: BILIRUBIN,DIRECT 0.9 mg/dL (0.0-0.2)
[2021-01-14 08:48] LABS: PHOSPHOROUS 3.8 mg/dL (2.5-4.9)
[2021-01-14 08:49] LABS: BILIRUBIN,TOTAL 1.5 mg/dL (0.2-1); TOT PROT 6.4 g/dl (6.4-8.2)
[2021-01-14] MEDS: LISINOPRIL 20 MG TABLET PO SCH (10:16)
[2021-01-14] MEDS: amLODIPine BESYLATE 5 MG TABLET (FP) PO SCH (10:16)
[2021-01-14] MEDS: methylPREDNISolone NA SUCC 40 MG/1 ML VIAL IVPB SCH ×2 (10:16→21:02)
[2021-01-14] MEDS: PANTOPRAZOLE 40 MG TABLET PO SCH (10:16)
[2021-01-14] MEDS: ASPIRIN 81 MG CHEWABLE TABLETS PO SCH (10:16)
[2021-01-14] MEDS: ENOXAPARIN NA (PORCINE) 40 MG/0.4 ML DISP.SYRIN SQ SCH (10:16)
[2021-01-14] MEDS: ATOVAQUONE 750 MG/5 ML (UNIT-DOSE PACKAGING) PO SCH (17:07)
[2021-01-15 07:43] LABS: HEMATOCRIT 36.8 % (35.4-49); HEMOGLOBIN 12.4 GM/dL (11.7-16.9); MCH 33.1 pg (25.7-33.7); MCHC 33.8 g/dl (32.0-35.9); MEAN CELL VOLUME 98.2 fl (80-96); MEAN PLT VOLUME 8.7 fl (7.5-11.1); PLATELET COUNT 187 10^3/uL (134-434); RBC 3.74 M/mm3 (4.00-5.60); RDW 15.1 % (11.9-15.9); WHITE BLOOD COUNT 9.6 K/mm3 (4.0-10.0)
[2021-01-15 07:53] LABS: CALCIUM 8.7 mg/dL (8.5-10.1)
[2021-01-15 07:54] LABS: ALBUMIN 2.9 g/dl (3.4-5.0); BLOOD UREA NITROGEN 25.1 mg/dL (7-18); MAGNESIUM 2.7 mg/dL (1.8-2.4)
[2021-01-15 07:56] LABS: BILIRUBIN,DIRECT 0.9 mg/dL (0.0-0.2)
[2021-01-15 07:57] LABS: PHOSPHOROUS 3.5 mg/dL (2.5-4.9)
[2021-01-15 07:58] LABS: BILIRUBIN,TOTAL 1.4 mg/dL (0.2-1); TOT PROT 6.1 g/dl (6.4-8.2)
[2021-01-15 08:04] LABS: INR 0.96 (0.83-1.09); PROTHROMBIN TIME (PATIENT) 11.8 SEC (9.7-13.0)
[2021-01-15] MEDS: amLODIPine BESYLATE 5 MG TABLET (FP) PO SCH (11:02)
[2021-01-15] MEDS: ENOXAPARIN NA (PORCINE) 40 MG/0.4 ML DISP.SYRIN SQ SCH (11:02)
[2021-01-15] MEDS: LISINOPRIL 20 MG TABLET PO SCH (11:03)
[2021-01-15] MEDS: PANTOPRAZOLE 40 MG TABLET PO SCH (11:03)
[2021-01-15] MEDS: ASPIRIN 81 MG CHEWABLE TABLETS PO SCH (11:03)
[2021-01-15] MEDS: methylPREDNISolone NA SUCC 40 MG/1 ML VIAL IVPB SCH ×2 (11:03→21:22)
[2021-01-15] MEDS ORDERED: PT OWN MED DRAWER 7, Y5N ONE ×3 (14:48→18:13)
[2021-01-15] MEDS: MYCOPHENOLATE MOFETIL 250 MG CAPSULE PO SCH ×2 (16:17→21:22)
[2021-01-15] MEDS: ATOVAQUONE 750 MG/5 ML (UNIT-DOSE PACKAGING) PO SCH (18:21)
[2021-01-16] MEDS ORDERED: PT OWN MED DRAWER 7, Y5N ONE ×3 (08:39→21:01)
[2021-01-16] MEDS: amLODIPine BESYLATE 5 MG TABLET (FP) PO SCH (09:13)
[2021-01-16] MEDS: ENOXAPARIN NA (PORCINE) 40 MG/0.4 ML DISP.SYRIN SQ SCH (09:13)
[2021-01-16] MEDS: LISINOPRIL 20 MG TABLET PO SCH (09:13)
[2021-01-16] MEDS: PANTOPRAZOLE 40 MG TABLET PO SCH (09:13)
[2021-01-16] MEDS: ASPIRIN 81 MG CHEWABLE TABLETS PO SCH (09:14)
[2021-01-16] MEDS: MYCOPHENOLATE MOFETIL 250 MG CAPSULE PO SCH ×2 (09:14→21:05)
[2021-01-16] MEDS: methylPREDNISolone NA SUCC 40 MG/1 ML VIAL IVPB SCH ×2 (10:32→21:04)
[2021-01-16 11:07] LABS: HEMOGLOBIN 13.8 GM/dL (11.7-16.9); MCH 33.3 pg (25.7-33.7); MCHC 33.8 g/dl (32.0-35.9); MEAN CELL VOLUME 98.7 fl (80-96); MEAN PLT VOLUME 8.5 fl (7.5-11.1); PLATELET COUNT 286 10^3/uL (134-434); RBC 4.15 M/mm3 (4.00-5.60); RDW 14.8 % (11.9-15.9); WHITE BLOOD COUNT 15.2 K/mm3 (4.0-10.0)
[2021-01-16 11:12] LABS: INR 0.93 (0.83-1.09); PROTHROMBIN TIME (PATIENT) 11.4 SEC (9.7-13.0)
[2021-01-16 11:30] LABS: ALBUMIN 3.4 g/dl (3.4-5.0); BLOOD UREA NITROGEN 23.2 mg/dL (7-18); CALCIUM 9.2 mg/dL (8.5-10.1); MAGNESIUM 2.7 mg/dL (1.8-2.4)
[2021-01-16 11:33] LABS: CREATININE 1.1 mg/dL (0.55-1.3); PHOSPHOROUS 3.1 mg/dL (2.5-4.9)
[2021-01-16 11:35] LABS: BILIRUBIN,TOTAL 2.2 mg/dL (0.2-1); TOT PROT 7.1 g/dl (6.4-8.2)
[2021-01-16] MEDS: ATOVAQUONE 750 MG/5 ML (UNIT-DOSE PACKAGING) PO SCH (17:46)
[2021-01-17 09:03] LABS: ALBUMIN 2.8 g/dl (3.4-5.0); BLOOD UREA NITROGEN 20.9 mg/dL (7-18); CALCIUM 8.5 mg/dL (8.5-10.1); MAGNESIUM 2.8 mg/dL (1.8-2.4)
[2021-01-17 09:06] LABS: CREATININE 0.9 mg/dL (0.55-1.3)
[2021-01-17 09:08] LABS: BILIRUBIN,TOTAL 1.8 mg/dL (0.2-1); PHOSPHOROUS 3.2 mg/dL (2.5-4.9); TOT PROT 6.1 g/dl (6.4-8.2)
[2021-01-17 09:10] LABS: HEMATOCRIT 36.7 % (35.4-49); HEMOGLOBIN 12.5 GM/dL (11.7-16.9); MCH 33.6 pg (25.7-33.7); MCHC 34.2 g/dl (32.0-35.9); MEAN CELL VOLUME 98.4 fl (80-96); MEAN PLT VOLUME 8.5 fl (7.5-11.1); PLATELET COUNT 220 10^3/uL (134-434); RBC 3.72 M/mm3 (4.00-5.60); RDW 14.8 % (11.9-15.9); WHITE BLOOD COUNT 9.4 K/mm3 (4.0-10.0)
[2021-01-17 09:58] LABS: INR 0.92 (0.83-1.09); PROTHROMBIN TIME (PATIENT) 11.3 SEC (9.7-13.0)
[2021-01-17] MEDS ORDERED: PT OWN MED DRAWER 7, Y5N ONE (10:26)
[2021-01-17] MEDS: methylPREDNISolone NA SUCC 40 MG/1 ML VIAL IVPB SCH ×2 (10:38→21:37)
[2021-01-17] MEDS: ENOXAPARIN NA (PORCINE) 40 MG/0.4 ML DISP.SYRIN SQ SCH (10:39)
[2021-01-17] MEDS: amLODIPine BESYLATE 5 MG TABLET (FP) PO SCH (10:39)
[2021-01-17] MEDS: LISINOPRIL 20 MG TABLET PO SCH (10:39)
[2021-01-17] MEDS: MYCOPHENOLATE MOFETIL 250 MG CAPSULE PO SCH ×2 (10:39→21:37)
[2021-01-17] MEDS: PANTOPRAZOLE 40 MG TABLET PO SCH (10:39)
[2021-01-17] MEDS: ASPIRIN 81 MG CHEWABLE TABLETS PO SCH (10:39)
[2021-01-17] MEDS: ATOVAQUONE 750 MG/5 ML (UNIT-DOSE PACKAGING) PO SCH (17:09)
[2021-01-18 07:43] LABS: HEMATOCRIT 36.7 % (35.4-49); HEMOGLOBIN 12.6 GM/dL (11.7-16.9); MCH 33.5 pg (25.7-33.7); MCHC 34.5 g/dl (32.0-35.9); MEAN CELL VOLUME 97.3 fl (80-96); MEAN PLT VOLUME 8.3 fl (7.5-11.1); PLATELET COUNT 208 10^3/uL (134-434); RBC 3.77 M/mm3 (4.00-5.60); RDW 15.1 % (11.9-15.9); WHITE BLOOD COUNT 9.8 K/mm3 (4.0-10.0)
[2021-01-18 07:54] LABS: INR 0.92 (0.83-1.09); PROTHROMBIN TIME (PATIENT) 11.3 SEC (9.7-13.0)
[2021-01-18 08:05] LABS: CALCIUM 8.3 mg/dL (8.5-10.1)
[2021-01-18 08:06] LABS: ALBUMIN 2.8 g/dl (3.4-5.0); BLOOD UREA NITROGEN 23.5 mg/dL (7-18); MAGNESIUM 2.8 mg/dL (1.8-2.4)
[2021-01-18 08:09] LABS: CREATININE 0.9 mg/dL (0.55-1.3); PHOSPHOROUS 2.4 mg/dL (2.5-4.9)
[2021-01-18 08:10] LABS: BILIRUBIN,TOTAL 1.8 mg/dL (0.2-1); TOT PROT 6.2 g/dl (6.4-8.2)
[2021-01-18] MEDS: ENOXAPARIN NA (PORCINE) 40 MG/0.4 ML DISP.SYRIN SQ SCH (09:43)
[2021-01-18] MEDS: methylPREDNISolone NA SUCC 40 MG/1 ML VIAL IVPB SCH ×2 (09:43→23:28)
[2021-01-18] MEDS: MYCOPHENOLATE MOFETIL 250 MG CAPSULE PO SCH ×2 (09:43→23:30)
[2021-01-18] MEDS: POLYETHYLENE GLYCOL (HEALTHYLAX) 3350 17 GM PACKET PO SCH ×2 (09:43→23:28)
[2021-01-18] MEDS: ASPIRIN 81 MG CHEWABLE TABLETS PO SCH (09:45)
[2021-01-18] MEDS: PANTOPRAZOLE 40 MG TABLET PO SCH (09:45)
[2021-01-18] MEDS: LISINOPRIL 20 MG TABLET PO SCH (09:45)
[2021-01-18] MEDS: amLODIPine BESYLATE 5 MG TABLET (FP) PO SCH (09:45)
[2021-01-18] MEDS: ATOVAQUONE 750 MG/5 ML (UNIT-DOSE PACKAGING) PO SCH (17:16)
[2021-01-18] MEDS: PORTA CATH FLUSH 10 ML IVPUSH PRN (19:36)
[2021-01-18] MEDS ORDERED: PT OWN MED DRAWER 7, Y5N ONE (22:33)
[2021-01-19] MEDS: PORTA CATH FLUSH 10 ML IVPUSH PRN (07:00)
[2021-01-19 07:46] LABS: HEMATOCRIT 37.5 % (35.4-49); HEMOGLOBIN 12.6 GM/dL (11.7-16.9); MCH 33.2 pg (25.7-33.7); MCHC 33.5 g/dl (32.0-35.9); PLATELET COUNT 216 10^3/uL (134-434); RBC 3.79 M/mm3 (4.00-5.60); RDW 15.4 % (11.9-15.9); WHITE BLOOD COUNT 9.3 K/mm3 (4.0-10.0)
[2021-01-19 07:59] LABS: ALBUMIN 2.9 g/dl (3.4-5.0); BLOOD UREA NITROGEN 23.6 mg/dL (7-18); CALCIUM 8.4 mg/dL (8.5-10.1)
[2021-01-19 08:00] LABS: MAGNESIUM 2.6 mg/dL (1.8-2.4)
[2021-01-19 08:02] LABS: CREATININE 0.9 mg/dL (0.55-1.3)
[2021-01-19 08:03] LABS: PHOSPHOROUS 2.8 mg/dL (2.5-4.9)
[2021-01-19 08:04] LABS: BILIRUBIN,TOTAL 2.2 mg/dL (0.2-1)
[2021-01-19 08:21] LABS: INR 0.86 (0.83-1.09); PROTHROMBIN TIME (PATIENT) 10.6 SEC (9.7-13.0)
[2021-01-19] MEDS ORDERED: PT OWN MED DRAWER 7, Y5N ONE ×4 (09:45→20:42)
[2021-01-19] MEDS: PANTOPRAZOLE 40 MG TABLET PO SCH (09:49)
[2021-01-19] MEDS: ASPIRIN 81 MG CHEWABLE TABLETS PO SCH (09:49)
[2021-01-19] MEDS: ENOXAPARIN NA (PORCINE) 40 MG/0.4 ML DISP.SYRIN SQ SCH (09:49)
[2021-01-19] MEDS: amLODIPine BESYLATE 5 MG TABLET (FP) PO SCH (09:49)
[2021-01-19] MEDS: LISINOPRIL 20 MG TABLET PO SCH (09:49)
[2021-01-19] MEDS: POLYETHYLENE GLYCOL (HEALTHYLAX) 3350 17 GM PACKET PO SCH ×2 (09:52→21:52)
[2021-01-19] MEDS ORDERED: MYCOPHENOLATE MOFETIL 250 MG CAPSULE PO SCH ×2 (10:00)
[2021-01-19] MEDS ORDERED: MYCOPHENOLATE MOFETIL 500 MG TABLET PO SCH (10:12)
[2021-01-19] MEDS: MYCOPHENOLATE MOFETIL 500 MG TABLET PO SCH (10:37)
[2021-01-19] MEDS: methylPREDNISolone 4 MG TABLET PO SCH ×2 (12:29→21:14)
[2021-01-19] MEDS: ATOVAQUONE 750 MG/5 ML (UNIT-DOSE PACKAGING) PO SCH (17:30)
[2021-01-19] MEDS: MYCOPHENOLATE MOFETIL 250 MG CAPSULE PO SCH (21:14)
[2021-01-20] MEDS: PORTA CATH FLUSH 10 ML IVPUSH PRN (06:08)
[2021-01-20 07:18] LABS: HEMATOCRIT 35.6 % (35.4-49); HEMOGLOBIN 12.2 GM/dL (11.7-16.9); MCH 34.1 pg (25.7-33.7); MCHC 34.2 g/dl (32.0-35.9); MEAN CELL VOLUME 99.7 fl (80-96); MEAN PLT VOLUME 8.2 fl (7.5-11.1); PLATELET COUNT 204 10^3/uL (134-434); RBC 3.57 M/mm3 (4.00-5.60); RDW 15.3 % (11.9-15.9); WHITE BLOOD COUNT 7.7 K/mm3 (4.0-10.0)
[2021-01-20 07:43] LABS: ALBUMIN 2.8 g/dl (3.4-5.0); BLOOD UREA NITROGEN 20.8 mg/dL (7-18); CALCIUM 8.2 mg/dL (8.5-10.1)
[2021-01-20 07:46] LABS: MAGNESIUM 2.5 mg/dL (1.8-2.4); PHOSPHOROUS 3.2 mg/dL (2.5-4.9)
[2021-01-20 07:47] LABS: CREATININE 0.9 mg/dL (0.55-1.3)
[2021-01-20 07:48] LABS: BILIRUBIN,TOTAL 2.9 mg/dL (0.2-1); TOT PROT 5.9 g/dl (6.4-8.2)
[2021-01-20 07:50] LABS: ALBUMIN 2.8 g/dl (3.4-5.0)
[2021-01-20 07:52] LABS: BILIRUBIN,DIRECT 2.4 mg/dL (0.0-0.2)
[2021-01-20 07:55] LABS: BILIRUBIN,TOTAL 3.4 mg/dL (0.2-1); TOT PROT 5.9 g/dl (6.4-8.2)
[2021-01-20 08:24] LABS: INR 0.94 (0.83-1.09); PROTHROMBIN TIME (PATIENT) 11.5 SEC (9.7-13.0)
[2021-01-20] MEDS: ASPIRIN 81 MG CHEWABLE TABLETS PO SCH (10:27)
[2021-01-20] MEDS: MYCOPHENOLATE MOFETIL 500 MG TABLET PO SCH (10:27)
[2021-01-20] MEDS: LISINOPRIL 20 MG TABLET PO SCH (10:28)
[2021-01-20] MEDS: amLODIPine BESYLATE 5 MG TABLET (FP) PO SCH (10:28)
[2021-01-20] MEDS: PANTOPRAZOLE 40 MG TABLET PO SCH (10:28)
[2021-01-20] MEDS: POLYETHYLENE GLYCOL (HEALTHYLAX) 3350 17 GM PACKET PO SCH ×2 (10:30→22:25)
[2021-01-20] MEDS: ENOXAPARIN NA (PORCINE) 40 MG/0.4 ML DISP.SYRIN SQ SCH (10:30)
[2021-01-20] MEDS: methylPREDNISolone 4 MG TABLET PO SCH (10:33)
[2021-01-20] MEDS: ATOVAQUONE 750 MG/5 ML (UNIT-DOSE PACKAGING) PO SCH (18:55)
[2021-01-20] MEDS ORDERED: PT OWN MED DRAWER 7, Y5N ONE (22:23)
[2021-01-20] MEDS: MYCOPHENOLATE MOFETIL 250 MG CAPSULE PO SCH (22:26)
[2021-01-21] MEDS: methylPREDNISolone 4 MG TABLET PO SCH ×3 (00:02→21:33)
[2021-01-21] MEDS: PORTA CATH FLUSH 10 ML IVPUSH PRN (06:38)
[2021-01-21 07:09] LABS: HEMATOCRIT 34.6 % (35.4-49); HEMOGLOBIN 11.8 GM/dL (11.7-16.9); MCH 33.8 pg (25.7-33.7); MEAN CELL VOLUME 99.3 fl (80-96); MEAN PLT VOLUME 8.1 fl (7.5-11.1); PLATELET COUNT 198 10^3/uL (134-434); RBC 3.48 M/mm3 (4.00-5.60); RDW 15.3 % (11.9-15.9); WHITE BLOOD COUNT 11.5 K/mm3 (4.0-10.0)
[2021-01-21 07:15] LABS: INR 0.91 (0.83-1.09); PROTHROMBIN TIME (PATIENT) 11.2 SEC (9.7-13.0)
[2021-01-21 07:53] LABS: ALBUMIN 2.8 g/dl (3.4-5.0); BLOOD UREA NITROGEN 21.7 mg/dL (7-18); CALCIUM 8.4 mg/dL (8.5-10.1); MAGNESIUM 2.5 mg/dL (1.8-2.4)
[2021-01-21 07:56] LABS: BILIRUBIN,DIRECT 2.5 mg/dL (0.0-0.2); CREATININE 0.9 mg/dL (0.55-1.3)
[2021-01-21 07:57] LABS: PHOSPHOROUS 2.8 mg/dL (2.5-4.9)
[2021-01-21 07:58] LABS: BILIRUBIN,TOTAL 3.5 mg/dL (0.2-1); TOT PROT 5.9 g/dl (6.4-8.2)
[2021-01-21] MEDS: ENOXAPARIN NA (PORCINE) 40 MG/0.4 ML DISP.SYRIN SQ SCH (10:08)
[2021-01-21] MEDS: amLODIPine BESYLATE 5 MG TABLET (FP) PO SCH (10:09)
[2021-01-21] MEDS: LISINOPRIL 20 MG TABLET PO SCH (10:09)
[2021-01-21] MEDS: POLYETHYLENE GLYCOL (HEALTHYLAX) 3350 17 GM PACKET PO SCH ×2 (10:09→21:32)
[2021-01-21] MEDS: PANTOPRAZOLE 40 MG TABLET PO SCH (10:09)
[2021-01-21] MEDS: ASPIRIN 81 MG CHEWABLE TABLETS PO SCH (10:09)
[2021-01-21] MEDS: MYCOPHENOLATE MOFETIL 500 MG TABLET PO SCH (10:09)
[2021-01-21] MEDS ORDERED: PT OWN MED DRAWER 7, Y5N ONE ×2 (10:11→17:29)
[2021-01-21] MEDS: ATOVAQUONE 750 MG/5 ML (UNIT-DOSE PACKAGING) PO SCH (17:30)
[2021-01-21] MEDS: MYCOPHENOLATE MOFETIL 250 MG CAPSULE PO SCH (21:32)
[2021-01-22 00:55] LABS: PH,URINE 6.5 (5.0-8.0); URINE APPEARANCE CLEAR; URINE BILIRUBIN NEGATIVE (NEGATIVE); URINE COLOR DK YELLOW; URINE GLUCOSE (UA) 3+ (NEGATIVE); URINE KETONE NEGATIVE (NEGATIVE); URINE LEUK ESTERASE NEGATIVE (NEGATIVE); URINE NITRITE NEGATIVE (NEGATIVE); URINE PROTEIN TRACE (NEGATIVE)
[2021-01-22 06:51] LABS: HEMOGLOBIN 12.1 GM/dL (11.7-16.9); MCH 34.6 pg (25.7-33.7); MCHC 34.6 g/dl (32.0-35.9); MEAN CELL VOLUME 100.1 fl (80-96); MEAN PLT VOLUME 8.7 fl (7.5-11.1); PLATELET COUNT 204 10^3/uL (134-434); WHITE BLOOD COUNT 12.8 K/mm3 (4.0-10.0)
[2021-01-22 07:00] LABS: INR 0.9 (0.83-1.09); PROTHROMBIN TIME (PATIENT) 11.1 SEC (9.7-13.0)
[2021-01-22 07:18] LABS: CALCIUM 8.2 mg/dL (8.5-10.1)
[2021-01-22 07:19] LABS: ALBUMIN 2.8 g/dl (3.4-5.0); MAGNESIUM 2.5 mg/dL (1.8-2.4)
[2021-01-22 07:21] LABS: BILIRUBIN,DIRECT 3.1 mg/dL (0.0-0.2)
[2021-01-22 07:22] LABS: CREATININE 1.1 mg/dL (0.55-1.3); PHOSPHOROUS 2.5 mg/dL (2.5-4.9)
[2021-01-22 07:23] LABS: BILIRUBIN,TOTAL 3.7 mg/dL (0.2-1); TOT PROT 5.8 g/dl (6.4-8.2)
[2021-01-22] MEDS ORDERED: PT OWN MED DRAWER 7, Y5N ONE ×2 (09:00→17:30)
[2021-01-22] MEDS: ENOXAPARIN NA (PORCINE) 40 MG/0.4 ML DISP.SYRIN SQ SCH (09:04)
[2021-01-22] MEDS: POLYETHYLENE GLYCOL (HEALTHYLAX) 3350 17 GM PACKET PO SCH ×2 (09:05→21:27)
[2021-01-22] MEDS: PANTOPRAZOLE 40 MG TABLET PO SCH (09:05)
[2021-01-22] MEDS: MYCOPHENOLATE MOFETIL 500 MG TABLET PO SCH ×2 (09:05→21:27)
[2021-01-22] MEDS: ASPIRIN 81 MG CHEWABLE TABLETS PO SCH (09:05)
[2021-01-22] MEDS: LISINOPRIL 20 MG TABLET PO SCH (09:05)
[2021-01-22] MEDS: amLODIPine BESYLATE 5 MG TABLET (FP) PO SCH (09:05)
[2021-01-22] MEDS: methylPREDNISolone 4 MG TABLET PO SCH (09:06)
[2021-01-22] MEDS: INSULIN SLIDING SCALE (NOVOLOG) 1 VIAL SQ SCH ×3 (11:28→21:30)
[2021-01-22] MEDS: ATOVAQUONE 750 MG/5 ML (UNIT-DOSE PACKAGING) PO SCH (17:35)
[2021-01-22] MEDS ORDERED: INSULIN (NOVOLOG) ASPART 100 UNITS/ML 10ML VIAL ONE (20:28)
[2021-01-22] MEDS: methylPREDNISolone NA SUCC 40 MG/1 ML VIAL IVPB SCH (21:27)
[2021-01-22] MEDS ORDERED: MYCOPHENOLATE MOFETIL 500 MG TABLET PO SCH ×2 (22:00)
[2021-01-23] MEDS: INSULIN SLIDING SCALE (NOVOLOG) 1 VIAL SQ SCH ×4 (06:25→23:53)
[2021-01-23 08:32] LABS: INR 0.9 (0.83-1.09)
[2021-01-23 08:33] LABS: HEMOGLOBIN 11.9 GM/dL (11.7-16.9); MCH 34.6 pg (25.7-33.7); MCHC 33.9 g/dl (32.0-35.9); MEAN CELL VOLUME 102.2 fl (80-96); MEAN PLT VOLUME 8.9 fl (7.5-11.1); PLATELET COUNT 212 10^3/uL (134-434); RBC 3.43 M/mm3 (4.00-5.60); RDW 15.3 % (11.9-15.9); WHITE BLOOD COUNT 13.5 K/mm3 (4.0-10.0)
[2021-01-23 08:54] LABS: CALCIUM 8.3 mg/dL (8.5-10.1); PHOSPHOROUS 3.2 mg/dL (2.5-4.9)
[2021-01-23 08:55] LABS: ALBUMIN 2.8 g/dl (3.4-5.0); BLOOD UREA NITROGEN 22.6 mg/dL (7-18); MAGNESIUM 2.6 mg/dL (1.8-2.4)
[2021-01-23 08:57] LABS: BILIRUBIN,DIRECT 3.1 mg/dL (0.0-0.2)
[2021-01-23 08:58] LABS: CREATININE 0.8 mg/dL (0.55-1.3)
[2021-01-23 09:00] LABS: BILIRUBIN,TOTAL 3.8 mg/dL (0.2-1); TOT PROT 5.7 g/dl (6.4-8.2)
[2021-01-23] MEDS: POLYETHYLENE GLYCOL (HEALTHYLAX) 3350 17 GM PACKET PO SCH ×2 (10:11→23:46)
[2021-01-23] MEDS: LISINOPRIL 20 MG TABLET PO SCH (10:11)
[2021-01-23] MEDS: PANTOPRAZOLE 40 MG TABLET PO SCH (10:11)
[2021-01-23] MEDS: MYCOPHENOLATE MOFETIL 500 MG TABLET PO SCH ×2 (10:11→23:46)
[2021-01-23] MEDS: ENOXAPARIN NA (PORCINE) 40 MG/0.4 ML DISP.SYRIN SQ SCH (10:11)
[2021-01-23] MEDS: amLODIPine BESYLATE 5 MG TABLET (FP) PO SCH (10:11)
[2021-01-23] MEDS: methylPREDNISolone NA SUCC 40 MG/1 ML VIAL IVPB SCH ×2 (10:13→23:47)
[2021-01-23] MEDS: ASPIRIN 81 MG CHEWABLE TABLETS PO SCH (10:22)
[2021-01-23] MEDS ORDERED: INSULIN (NOVOLOG) ASPART 100 UNITS/ML 10ML VIAL ONE (11:10)
[2021-01-23] MEDS ORDERED: PT OWN MED DRAWER 7, Y5N ONE ×2 (17:26→17:28)
[2021-01-23] MEDS: ATOVAQUONE 750 MG/5 ML (UNIT-DOSE PACKAGING) PO SCH (17:27)
[2021-01-24] MEDS: PORTA CATH FLUSH 10 ML IVPUSH PRN (06:35)
[2021-01-24] MEDS: INSULIN SLIDING SCALE (NOVOLOG) 1 VIAL SQ SCH ×4 (06:35→21:12)
[2021-01-24 08:37] LABS: ACTIVATED PTT 21.4 SECONDS (25.2-36.5); INR 0.89 (0.83-1.09); PROTHROMBIN TIME (PATIENT) 10.9 SEC (9.7-13.0)
[2021-01-24 09:02] LABS: BLOOD UREA NITROGEN 22.8 mg/dL (7-18); CHLORIDE 97 mmol/L (98-107); CREATININE 0.9 mg/dL (0.55-1.3); GLUCOSE,RANDOM 224 mg/dL (74-106); SODIUM 135 mmol/L (136-145)
[2021-01-24 09:03] LABS: ALBUMIN 2.7 g/dl (3.4-5.0); ALK PHOS 155 U/L (45-117); BILIRUBIN,DIRECT 2.7 mg/dL (0.0-0.2); BILIRUBIN,TOTAL 3.4 mg/dL (0.2-1); CALCIUM 8.1 mg/dL (8.5-10.1); CO2 31 mmol/L (21-32); SGOT/AST 153 U/L (15-37); SGPT/ALT 903 U/L (13-61); TOT PROT 5.7 g/dl (6.4-8.2)
[2021-01-24] MEDS ORDERED: PT OWN MED DRAWER 7, Y5N ONE ×2 (09:12→16:59)
[2021-01-24 09:15] LABS: HEMATOCRIT 34.3 % (35.4-49); HEMOGLOBIN 11.6 GM/dL (11.7-16.9); MCH 34.3 pg (25.7-33.7); MCHC 33.7 g/dl (32.0-35.9); MEAN CELL VOLUME 101.6 fl (80-96); MEAN PLT VOLUME 8.6 fl (7.5-11.1); PLATELET COUNT 188 10^3/uL (134-434); RBC 3.38 M/mm3 (4.00-5.60); RDW 15.3 % (11.9-15.9); WHITE BLOOD COUNT 10.4 K/mm3 (4.0-10.0)
[2021-01-24] MEDS: POLYETHYLENE GLYCOL (HEALTHYLAX) 3350 17 GM PACKET PO SCH ×2 (09:47→21:12)
[2021-01-24] MEDS: methylPREDNISolone NA SUCC 40 MG/1 ML VIAL IVPB SCH ×2 (09:47→21:14)
[2021-01-24] MEDS: PANTOPRAZOLE 40 MG TABLET PO SCH (09:47)
[2021-01-24] MEDS: ENOXAPARIN NA (PORCINE) 40 MG/0.4 ML DISP.SYRIN SQ SCH (09:47)
[2021-01-24] MEDS: LISINOPRIL 20 MG TABLET PO SCH (09:47)
[2021-01-24] MEDS: MYCOPHENOLATE MOFETIL 500 MG TABLET PO SCH ×2 (10:26→21:14)
[2021-01-24 11:32] LABS: ANISOCYTOSIS 1+; MACROCYTOSIS 1+; PLATELET ESTIMATE NORMAL
[2021-01-24] MEDS: ATOVAQUONE 750 MG/5 ML (UNIT-DOSE PACKAGING) PO SCH (16:59)
[2021-01-24] MEDS ORDERED: INSULIN (NOVOLOG) ASPART 100 UNITS/ML 10ML VIAL ONE (20:57)
[2021-01-24] MEDS: amLODIPine BESYLATE 10 MG TABLET (FP) PO SCH (21:14)
[2021-01-25] MEDS: INSULIN SLIDING SCALE (NOVOLOG) 1 VIAL SQ SCH ×4 (06:53→21:03)
[2021-01-25] MEDS: PORTA CATH FLUSH 10 ML IVPUSH PRN (07:21)
[2021-01-25 07:47] LABS: HEMATOCRIT 37.1 % (35.4-49); HEMOGLOBIN 12.3 GM/dL (11.7-16.9); MCH 34.1 pg (25.7-33.7); MCHC 33.2 g/dl (32.0-35.9); MEAN CELL VOLUME 102.7 fl (80-96); PLATELET COUNT 246 10^3/uL (134-434); RBC 3.62 M/mm3 (4.00-5.60); RDW 15.9 % (11.9-15.9)
[2021-01-25 08:18] LABS: CALCIUM 8.9 mg/dL (8.5-10.1)
[2021-01-25 08:19] LABS: BLOOD UREA NITROGEN 26.1 mg/dL (7-18); MAGNESIUM 2.6 mg/dL (1.8-2.4)
[2021-01-25 08:22] LABS: PHOSPHOROUS 3.6 mg/dL (2.5-4.9)
[2021-01-25 08:24] LABS: BILIRUBIN,TOTAL 3.3 mg/dL (0.2-1)
[2021-01-25 08:25] LABS: TOT PROT 6.2 g/dl (6.4-8.2)
[2021-01-25] MEDS ORDERED: PT OWN MED DRAWER 7, Y5N ONE ×2 (09:39→17:03)
[2021-01-25] MEDS: POLYETHYLENE GLYCOL (HEALTHYLAX) 3350 17 GM PACKET PO SCH ×2 (09:40→21:02)
[2021-01-25] MEDS: methylPREDNISolone 4 MG TABLET PO SCH ×2 (09:41→22:03)
[2021-01-25] MEDS: LISINOPRIL 20 MG TABLET PO SCH (09:41)
[2021-01-25] MEDS: PANTOPRAZOLE 40 MG TABLET PO SCH (09:41)
[2021-01-25] MEDS: MYCOPHENOLATE MOFETIL 500 MG TABLET PO SCH ×2 (09:41→21:01)
[2021-01-25 16:08] LABS: IGA IMMUNOGLOBULIN 191 mg/dL (61-437); IGG QN IMMUNOGLOBULIN 721 mg/dL (603-1613); IGM QN SERUM 65 mg/dL (15-143)
[2021-01-25] MEDS: ATOVAQUONE 750 MG/5 ML (UNIT-DOSE PACKAGING) PO SCH (17:07)
[2021-01-25] MEDS ORDERED: INSULIN (NOVOLOG) ASPART 100 UNITS/ML 10ML VIAL ONE (20:52)
[2021-01-25] MEDS: amLODIPine BESYLATE 10 MG TABLET (FP) PO SCH (21:01)
[2021-01-26] MEDS: INSULIN SLIDING SCALE (NOVOLOG) 1 VIAL SQ SCH ×4 (06:29→21:39)
[2021-01-26 09:02] LABS: HEMATOCRIT 34.4 % (35.4-49); HEMOGLOBIN 11.7 GM/dL (11.7-16.9); MCH 34.9 pg (25.7-33.7); MEAN CELL VOLUME 102.7 fl (80-96); PLATELET COUNT 206 10^3/uL (134-434); RBC 3.35 M/mm3 (4.00-5.60); WHITE BLOOD COUNT 10.3 K/mm3 (4.0-10.0)
[2021-01-26 09:15] LABS: INR 0.87 (0.83-1.09); PROTHROMBIN TIME (PATIENT) 10.7 SEC (9.7-13.0)
[2021-01-26] MEDS ORDERED: PT OWN MED DRAWER 7, Y5N ONE ×3 (09:16→17:30)
[2021-01-26 09:17] LABS: ACTIVATED PTT 19.1 SECONDS (25.2-36.5)
[2021-01-26] MEDS: LISINOPRIL 20 MG TABLET PO SCH (09:22)
[2021-01-26] MEDS: MYCOPHENOLATE MOFETIL 500 MG TABLET PO SCH ×2 (09:22→21:27)
[2021-01-26] MEDS: POLYETHYLENE GLYCOL (HEALTHYLAX) 3350 17 GM PACKET PO SCH ×2 (09:22→21:27)
[2021-01-26] MEDS: PANTOPRAZOLE 40 MG TABLET PO SCH (09:22)
[2021-01-26 09:23] LABS: ALBUMIN 2.8 g/dl (3.4-5.0); CALCIUM 8.2 mg/dL (8.5-10.1); MAGNESIUM 2.6 mg/dL (1.8-2.4)
[2021-01-26 09:26] LABS: CREATININE 0.8 mg/dL (0.55-1.3)
[2021-01-26 09:27] LABS: PHOSPHOROUS 3.3 mg/dL (2.5-4.9)
[2021-01-26 09:28] LABS: BILIRUBIN,TOTAL 2.2 mg/dL (0.2-1); TOT PROT 5.8 g/dl (6.4-8.2)
[2021-01-26 09:36] LABS: BLOOD UREA NITROGEN 21.4 mg/dL (7-18)
[2021-01-26] MEDS ORDERED: ENOXAPARIN NA (PORCINE) 40 MG/0.4 ML DISP.SYRIN SQ SCH (10:00)
[2021-01-26] MEDS: methylPREDNISolone 4 MG TABLET PO SCH ×2 (12:29→22:01)
[2021-01-26] MEDS: ATOVAQUONE 750 MG/5 ML (UNIT-DOSE PACKAGING) PO SCH (17:42)
[2021-01-26] MEDS ORDERED: INSULIN (NOVOLOG) ASPART 100 UNITS/ML 10ML VIAL ONE (21:07)
[2021-01-26] MEDS: amLODIPine BESYLATE 10 MG TABLET (FP) PO SCH (21:27)
[2021-01-26] MEDS: SENNOSIDES 8.6MG TABLET (FP) PO SCH (21:30)
[2021-01-27] MEDS: INSULIN SLIDING SCALE (NOVOLOG) 1 VIAL SQ SCH ×4 (06:41→21:17)
[2021-01-27 08:09] LABS: BLOOD UREA NITROGEN 20.6 mg/dL (7-18); CALCIUM 8.3 mg/dL (8.5-10.1); HEMATOCRIT 33.2 % (35.4-49); HEMOGLOBIN 11.5 GM/dL (11.7-16.9); MCH 35.6 pg (25.7-33.7); MCHC 34.5 g/dl (32.0-35.9); MEAN CELL VOLUME 103.1 fl (80-96); MEAN PLT VOLUME 8.8 fl (7.5-11.1); PLATELET COUNT 192 10^3/uL (134-434); RBC 3.22 M/mm3 (4.00-5.60); RDW 15.7 % (11.9-15.9); WHITE BLOOD COUNT 10.2 K/mm3 (4.0-10.0)
[2021-01-27 08:10] LABS: ALBUMIN 2.7 g/dl (3.4-5.0); INR 0.9 (0.83-1.09); MAGNESIUM 2.5 mg/dL (1.8-2.4); PROTHROMBIN TIME (PATIENT) 11.1 SEC (9.7-13.0)
[2021-01-27 08:13] LABS: CREATININE 0.8 mg/dL (0.55-1.3); PHOSPHOROUS 3.5 mg/dL (2.5-4.9)
[2021-01-27 08:14] LABS: BILIRUBIN,TOTAL 1.9 mg/dL (0.2-1); TOT PROT 5.6 g/dl (6.4-8.2)
[2021-01-27] MEDS ORDERED: PT OWN MED DRAWER 7, Y5N ONE ×2 (09:37→17:27)
[2021-01-27] MEDS: PANTOPRAZOLE 40 MG TABLET PO SCH (09:49)
[2021-01-27] MEDS: MYCOPHENOLATE MOFETIL 500 MG TABLET PO SCH ×2 (09:49→21:16)
[2021-01-27] MEDS: LISINOPRIL 20 MG TABLET PO SCH (09:49)
[2021-01-27] MEDS: methylPREDNISolone 4 MG TABLET PO SCH ×2 (09:50→21:15)
[2021-01-27] MEDS: POLYETHYLENE GLYCOL (HEALTHYLAX) 3350 17 GM PACKET PO SCH ×2 (09:50→21:16)
[2021-01-27] MEDS ORDERED: INSULIN (LEVEMIR) 100 UNITS/ML UNITS SQ ONE (13:50)
[2021-01-27] MEDS: ATOVAQUONE 750 MG/5 ML (UNIT-DOSE PACKAGING) PO SCH (17:29)
[2021-01-27 18:52] LABS: MAGNESIUM 2.5 mg/dL (1.8-2.4)
[2021-01-27 18:56] LABS: PHOSPHOROUS 3.2 mg/dL (2.5-4.9)
[2021-01-27] MEDS: amLODIPine BESYLATE 10 MG TABLET (FP) PO SCH (21:16)
[2021-01-27] MEDS: SENNOSIDES 8.6MG TABLET (FP) PO SCH (21:17)
[2021-01-28] MEDS: INSULIN SLIDING SCALE (NOVOLOG) 1 VIAL SQ SCH ×2 (06:46→12:14)
[2021-01-28 08:08] LABS: CALCIUM 8.2 mg/dL (8.5-10.1)
[2021-01-28 08:09] LABS: ALBUMIN 2.7 g/dl (3.4-5.0); BLOOD UREA NITROGEN 24.8 mg/dL (7-18)
[2021-01-28 08:12] LABS: CREATININE 0.8 mg/dL (0.55-1.3)
[2021-01-28 08:13] LABS: BILIRUBIN,TOTAL 2.1 mg/dL (0.2-1)
[2021-01-28 08:14] LABS: TOT PROT 5.5 g/dl (6.4-8.2)
[2021-01-28 08:45] LABS: HEMATOCRIT 33.1 % (35.4-49); HEMOGLOBIN 11.2 GM/dL (11.7-16.9); MCH 35.3 pg (25.7-33.7); MCHC 33.8 g/dl (32.0-35.9); MEAN CELL VOLUME 104.6 fl (80-96); MEAN PLT VOLUME 9.1 fl (7.5-11.1); PLATELET COUNT 186 10^3/uL (134-434); RBC 3.17 M/mm3 (4.00-5.60); WHITE BLOOD COUNT 9.6 K/mm3 (4.0-10.0)
[2021-01-28] MEDS ORDERED: PT OWN MED DRAWER 7, Y5N ONE (09:17)
[2021-01-28] MEDS: LISINOPRIL 20 MG TABLET PO SCH (09:22)
[2021-01-28] MEDS: PANTOPRAZOLE 40 MG TABLET PO SCH (09:22)
[2021-01-28] MEDS: MYCOPHENOLATE MOFETIL 500 MG TABLET PO SCH (09:22)
[2021-01-28] MEDS: POLYETHYLENE GLYCOL (HEALTHYLAX) 3350 17 GM PACKET PO SCH (09:22)
[2021-01-28] MEDS ORDERED: INSULIN (LEVEMIR) 100 UNITS/ML UNITS SQ ONE ×2 (11:15→12:10)
[2021-01-28 12:53] VITALS: BP 123/65; PULSE 93; TEMP 98.3
[2021-01-28] MEDS: methylPREDNISolone 4 MG TABLET PO SCH (13:17)
== END 2021-01-28 14:35 | disposition home or self-care (01) | DRG 442 ==
LOC: JER 23:37 → JERBED 01-12 02:35 → J7W 01-12 12:41
PROVIDERS: ADMIT Internal Medicine; ATTEND Internal Medicine
DX: K75.4 Autoimmune hepatitis (principal); C79.51 Secondary malignant neoplasm of bone; C79.2 Secondary malignant neoplasm of skin; K71.6 Toxic liver disease with hepatitis, not elsewhere classified; T45.1X5A Adverse effect of antineoplastic and immunosuppressive drugs, initial encounter; I10 Essential (primary) hypertension; E78.00 Pure hypercholesterolemia, unspecified; R94.5 Abnormal results of liver function studies; R01.1 Cardiac murmur, unspecified; E03.9 Hypothyroidism, unspecified; C43.71 Malignant melanoma of right lower limb, including hip; R21 Rash and other nonspecific skin eruption; R59.0 Localized enlarged lymph nodes; K75.2 Nonspecific reactive hepatitis; Z86.711 Personal history of pulmonary embolism
CPT/HCPCS: 36415; 71045-TC-FY; 76705-TC; 80048; 80053; 80076; 81003; 82140; 82248; 82550; 82784; 82962; 83036; 83516; 83540; 83550; 83735; 84100; 85025; 85027; 85384; 85610; 85730; 86038; 86140; 86706; 86708; 86850; 86900; 86901; 87040; 87086; 87340; 87350; 87496; 87497; 87517; 87522; 87529; 87799; 93005; 93010; 93306-TC; 93971-TC; 97116-GP; 97161-GP; 99285-25; C9803; J7517; U0003; U0005

== ENCOUNTER 2021-02-01 04:43 | Day surgery (SDC) | payer OTHER ==
[2021-01-29 14:52] VITALS: BMI 30.7
[2021-02-01 12:12] LABS: BASO % 0.1 % (0-2.0); HEMATOCRIT 33.2 % (35.4-49); HEMOGLOBIN 11.3 GM/dL (11.7-16.9); LYMPH % 4.6 % (8-40); MCH 35.1 pg (25.7-33.7); MCHC 34.2 g/dl (32.0-35.9); MEAN CELL VOLUME 102.7 fl (80-96); MEAN PLT VOLUME 8.3 fl (7.5-11.1); MONO % 2.2 % (3.8-10.2); NEUT % 93.1 % (42.8-82.8); PLATELET COUNT 194 10^3/uL (134-434); RBC 3.23 M/mm3 (4.00-5.60); WHITE BLOOD COUNT 11.7 K/mm3 (4.0-10.0)
[2021-02-01 12:13] LABS: INR 0.91 (0.83-1.09); PROTHROMBIN TIME (PATIENT) 11.2 SEC (9.7-13.0)
[2021-02-01 12:27] LABS: ALBUMIN 2.8 g/dl (3.4-5.0); BLOOD UREA NITROGEN 17.8 mg/dL (7-18); CALCIUM 7.6 mg/dL (8.5-10.1)
[2021-02-01 12:30] LABS: CREATININE 0.8 mg/dL (0.55-1.3)
[2021-02-01 12:31] LABS: BILIRUBIN,TOTAL 0.9 mg/dL (0.2-1)
[2021-02-01 12:33] LABS: ANISOCYTOSIS 1+; MACROCYTOSIS 1+; PLATELET ESTIMATE NORMAL
[2021-02-01] MEDS ORDERED: SODIUM CHLORIDE 500 ML IV ONE (12:45)
[2021-02-01] MEDS ORDERED: MIDAZOLAM HCL 2 MG/2 ML SINGLE DOSE VIAL IVPUSH ONE ×2 (12:50→13:00)
[2021-02-01 15:59] VITALS: TEMP 97.8
[2021-02-01 16:35] VITALS: BP 120/70
[2021-02-01 17:00] VITALS: PULSE 84
== END 2021-02-01 17:04 | disposition home or self-care (01) ==
LOC: JRADIR 04:43
PROVIDERS: ATTEND Internal Medicine Hematology & Oncology
PROC: 0FB03ZX Excision of Liver, Percutaneous Approach, Diagnostic (ICD-10-PCS; principal; 2021-02-01)
DX: K75.9 Inflammatory liver disease, unspecified (principal); K76.0 Fatty (change of) liver, not elsewhere classified; C43.9 Malignant melanoma of skin, unspecified
CPT/HCPCS: 36415; 47000; 76942-TC; 80053; 82784; 85025; 85610; 85651; 85730; 86140; 87497; 87899; 88305-TC; 88313-TC

== ENCOUNTER 2021-02-05 15:47 | Inpatient (IN) | payer OTHER ==
[2021-02-05] MEDS ORDERED: SODIUM CHLORIDE 2,259 ML IV ONE (16:31)
[2021-02-05 18:26] LABS: BASO % 0.1 % (0-2.0); EOS % 3.1 % (0-4.5); HEMOGLOBIN 10.2 GM/dL (11.7-16.9); LYMPH % 7.8 % (8-40); MCH 35.1 pg (25.7-33.7); MCHC 34.1 g/dl (32.0-35.9); MEAN CELL VOLUME 102.9 fl (80-96); MEAN PLT VOLUME 7.7 fl (7.5-11.1); MONO % 1.7 % (3.8-10.2); NEUT % 87.3 % (42.8-82.8); PLATELET COUNT 133 10^3/uL (134-434); RBC 2.91 M/mm3 (4.00-5.60); RDW 15.8 % (11.9-15.9); VENOUS BASE EXCESS 0.5 mmol/L (-2-2); VENOUS PCO2 44.8 mmHg (38-52); VENOUS PH 7.38 (7.310-7.410); WHITE BLOOD COUNT 4.9 K/mm3 (4.0-10.0)
[2021-02-05 18:29] LABS: EPI CELLS 19 /uL (0-25.1); HYALINE CASTS 6 /uL (0-3.1); PH,URINE 5.5 (5.0-8.0); URINE APPEARANCE CLOUDY; URINE BACTERIA >9,000 /uL (0-1359); URINE BILIRUBIN NEGATIVE (NEGATIVE); URINE COLOR DK YELLOW; URINE GLUCOSE (UA) TRACE (NEGATIVE); URINE KETONE NEGATIVE (NEGATIVE); URINE LEUK ESTERASE 1+ (NEGATIVE); URINE NITRITE NEGATIVE (NEGATIVE); URINE PROTEIN 1+ (NEGATIVE); URINE RBC 25 /uL (0-23.9); URINE WBC 79 /uL (0-25.8)
[2021-02-05 18:33] LABS: INR 1.11 (0.83-1.09); PROTHROMBIN TIME (PATIENT) 12.4 SEC (9.7-13.0)
[2021-02-05 18:35] LABS: ACTIVATED PTT 18.6 SECONDS (25.2-36.5)
[2021-02-05] MEDS ORDERED: VANCOMYCIN 1 GM in D5W (PRE-DOCKED) 1,000 MG/250 ML IVPB ONE (18:44)
[2021-02-05] MEDS ORDERED: CEFEPIME HCL/D5W 2 GM/50 ML BAG IVPB ONE (18:46)
[2021-02-05] MEDS ORDERED: CEFEPIME 2 GM/100 ML BAG IVPB ONE (18:49)
[2021-02-05] MEDS ORDERED: VANCOMYCIN 1 GRAM (PRE-DOCKED) 1,000 MG/250 ML BAG IVPB ONE (18:49)
[2021-02-05 18:54] LABS: CHLORIDE 106 mmol/L (98-107); SODIUM 141 mmol/L (136-145)
[2021-02-05] MEDS ORDERED: FLUCONAZOLE 200 MG/D5W 100 ML IVPB ONE (18:54)
[2021-02-05 18:55] LABS: LACTIC ACID 3.7 mmol/L (0.4-2.0)
[2021-02-05 18:57] LABS: ALBUMIN 2.3 g/dl (3.4-5.0); ANION GAP 9 MMOL/L (8-16); BLOOD UREA NITROGEN 26.4 mg/dL (7-18); CALCIUM 7.5 mg/dL (8.5-10.1); CO2 26 mmol/L (21-32); GLUCOSE,RANDOM 170 mg/dL (74-106)
[2021-02-05] MEDS ORDERED: methylPREDNISolone 2 MG TABLET PO SCH ×2 (18:57→22:00)
[2021-02-05] MEDS ORDERED: SODIUM CHLORIDE 1,000 ML IV SCH (19:00)
[2021-02-05 19:01] LABS: CREATININE 0.9 mg/dL (0.55-1.3); SGOT/AST 47 U/L (15-37); SGPT/ALT 277 U/L (13-61)
[2021-02-05 19:02] LABS: TOT PROT 5.1 g/dl (6.4-8.2)
[2021-02-05 19:04] LABS: ALK PHOS 104 U/L (45-117)
[2021-02-05] MEDS ORDERED: FLUCONAZOLE 200 MG/NS 100 ML IVPB ONE (19:04)
[2021-02-05] MEDS ORDERED: methylPREDNISolone NA SUCC 40 MG/1 ML VIAL IVPUSH SCH ×2 (19:30)
[2021-02-05] MEDS ORDERED: methylPREDNISolone NA SUCC 40 MG/1 ML VIAL ONE (21:15)
[2021-02-05] MEDS: INSULIN SLIDING SCALE (NOVOLOG) 1 VIAL SQ SCH (22:08)
[2021-02-05] MEDS: MYCOPHENOLATE MOFETIL 500 MG TABLET PO SCH (22:08)
[2021-02-05] MEDS: ATOVAQUONE 750 MG/5 ML (UNIT-DOSE PACKAGING) PO SCH (22:08)
[2021-02-05] MEDS: methylPREDNISolone NA SUCC 40 MG/1 ML VIAL IVPB SCH (22:09)
[2021-02-05 23:07] LABS: LACTIC ACID 3.8 mmol/L (0.4-2.0)
[2021-02-06] MEDS: SODIUM CHLORIDE 1,000 ML IV SCH ×3 (00:56→23:15)
[2021-02-06] MEDS: INSULIN SLIDING SCALE (NOVOLOG) 1 VIAL SQ SCH ×4 (06:00→21:34)
[2021-02-06 06:43] LABS: EOS % 0.5 % (0-4.5); HEMATOCRIT 27.2 % (35.4-49); HEMOGLOBIN 9.3 GM/dL (11.7-16.9); LYMPH % 6.9 % (8-40); MCH 35.4 pg (25.7-33.7); MCHC 34.2 g/dl (32.0-35.9); MEAN CELL VOLUME 103.6 fl (80-96); MEAN PLT VOLUME 7.6 fl (7.5-11.1); MONO % 3.7 % (3.8-10.2); NEUT % 88.9 % (42.8-82.8); PLATELET COUNT 121 10^3/uL (134-434); RBC 2.62 M/mm3 (4.00-5.60); RDW 16.2 % (11.9-15.9); WHITE BLOOD COUNT 5.6 K/mm3 (4.0-10.0)
[2021-02-06 06:58] LABS: CALCIUM 7.9 mg/dL (8.5-10.1)
[2021-02-06 07:00] LABS: ALBUMIN 2.1 g/dl (3.4-5.0); BLOOD UREA NITROGEN 24.7 mg/dL (7-18)
[2021-02-06] MEDS ORDERED: CEFEPIME HCL/D5W 2 GM/50 ML BAG IVPB SCH (07:00)
[2021-02-06 07:03] LABS: CREATININE 0.8 mg/dL (0.55-1.3); PHOSPHOROUS 3.4 mg/dL (2.5-4.9)
[2021-02-06 07:04] LABS: BILIRUBIN,TOTAL 1.1 mg/dL (0.2-1)
[2021-02-06 07:05] LABS: TOT PROT 4.8 g/dl (6.4-8.2)
[2021-02-06] MEDS ORDERED: CEFEPIME 2 GM in DEXTROSE 5%-WATER 100 ML IVPB SCH (10:00)
[2021-02-06] MEDS ORDERED: PT OWN MED DRAWER 7, Y5N ONE ×2 (11:01→17:28)
[2021-02-06] MEDS: methylPREDNISolone NA SUCC 40 MG/1 ML VIAL IVPB SCH ×2 (11:08→21:28)
[2021-02-06] MEDS: ASPIRIN COATED 81 MG TABLET.EC PO SCH (11:08)
[2021-02-06] MEDS: PANTOPRAZOLE 40 MG TABLET PO SCH (11:08)
[2021-02-06] MEDS: MYCOPHENOLATE MOFETIL 500 MG TABLET PO SCH (11:08)
[2021-02-06] MEDS: ENOXAPARIN NA (PORCINE) 40 MG/0.4 ML DISP.SYRIN SQ SCH (11:09)
[2021-02-06] MEDS ORDERED: FLUCONAZOLE 100 MG/D5W 50 ML IVPB SCH (11:15)
[2021-02-06] MEDS ORDERED: FLUCONAZOLE 100 MG/NS 50 ML IVPB SCH (11:57)
[2021-02-06] MEDS ORDERED: ACYCLOVIR INJECTION 700 MG in DEXTROSE 5%-WATER - 100 ML IVPB SCH (13:00)
[2021-02-06] MEDS: VANCOMYCIN 1 GRAM (PRE-DOCKED) 1,000 MG/250 ML BAG IVPB SCH ×2 (14:11→23:04)
[2021-02-06] MEDS ORDERED: MYCOPHENOLATE MOFETIL 250 MG CAPSULE PO SCH (16:32)
[2021-02-06] MEDS ORDERED: DEXTROSE 5%-WATER 100 ML IVPB ONE (17:29)
[2021-02-06] MEDS ORDERED: CEFEPIME HCL 1 GM VIAL (RESTRICTED TO ID) ONE (17:29)
[2021-02-06] MEDS: CEFEPIME 1 GM in DEXTROSE 5%-WATER 100 ML IVPB SCH (17:35)
[2021-02-06] MEDS: FLUCONAZOLE 100 MG/NS 50 ML IVPB SCH (18:59)
[2021-02-06] MEDS: ACYCLOVIR INJECTION 750 MG in DEXTROSE 5%-WATER - 250 ML IVPB SCH ×2 (19:26→20:11)
[2021-02-06] MEDS ORDERED: INSULIN (NOVOLOG) ASPART 100 UNITS/ML 10ML VIAL ONE (20:30)
[2021-02-06] MEDS ORDERED: VANCOMYCIN 1 GM in D5W (PRE-DOCKED) 1,000 MG/250 ML IVPB SCH (21:00)
[2021-02-06] MEDS: ATOVAQUONE 750 MG/5 ML (UNIT-DOSE PACKAGING) PO SCH (21:28)
[2021-02-07] MEDS ORDERED: CEFEPIME HCL 1 GM VIAL (RESTRICTED TO ID) ONE ×3 (01:03→17:31)
[2021-02-07] MEDS ORDERED: DEXTROSE 5%-WATER 100 ML IVPB ONE ×4 (01:03→22:01)
[2021-02-07] MEDS: CEFEPIME 1 GM in DEXTROSE 5%-WATER 100 ML IVPB SCH ×3 (01:45→17:45)
[2021-02-07] MEDS: ACYCLOVIR INJECTION 750 MG in DEXTROSE 5%-WATER - 250 ML IVPB SCH ×3 (04:17→22:04)
[2021-02-07] MEDS: INSULIN SLIDING SCALE (NOVOLOG) 1 VIAL SQ SCH ×4 (06:08→22:12)
[2021-02-07] MEDS ORDERED: SODIUM CHLORIDE 1,000 ML IV SCH (07:58)
[2021-02-07 09:09] LABS: BASO % 0.1 % (0-2.0); EOS % 0.3 % (0-4.5); HEMATOCRIT 25.4 % (35.4-49); HEMOGLOBIN 8.8 GM/dL (11.7-16.9); LYMPH % 5.5 % (8-40); MCH 35.6 pg (25.7-33.7); MCHC 34.4 g/dl (32.0-35.9); MEAN CELL VOLUME 103.4 fl (80-96); MEAN PLT VOLUME 7.8 fl (7.5-11.1); MONO % 2.6 % (3.8-10.2); NEUT % 91.5 % (42.8-82.8); PLATELET COUNT 114 10^3/uL (134-434); RBC 2.46 M/mm3 (4.00-5.60); RDW 15.2 % (11.9-15.9); WHITE BLOOD COUNT 4.9 K/mm3 (4.0-10.0)
[2021-02-07 09:12] LABS: LACTIC ACID 2.8 mmol/L (0.4-2.0)
[2021-02-07 09:26] LABS: CALCIUM 7.6 mg/dL (8.5-10.1)
[2021-02-07 09:28] LABS: BLOOD UREA NITROGEN 21.7 mg/dL (7-18)
[2021-02-07 09:30] LABS: CREATININE 0.7 mg/dL (0.55-1.3)
[2021-02-07] MEDS ORDERED: CEFEPIME 2 GM in DEXTROSE 5%-WATER 100 ML IVPB SCH (10:00)
[2021-02-07] MEDS: PANTOPRAZOLE 40 MG TABLET PO SCH (11:08)
[2021-02-07] MEDS: ASPIRIN COATED 81 MG TABLET.EC PO SCH (11:08)
[2021-02-07] MEDS: methylPREDNISolone NA SUCC 40 MG/1 ML VIAL IVPB SCH ×2 (11:10→22:04)
[2021-02-07] MEDS: ENOXAPARIN NA (PORCINE) 40 MG/0.4 ML DISP.SYRIN SQ SCH (11:10)
[2021-02-07 11:13] LABS: ANISOCYTOSIS 1+; MACROCYTOSIS 1+; PLATELET ESTIMATE DECREASED
[2021-02-07] MEDS ORDERED: ONDANSETRON 4 MG/2 ML VIAL IVPUSH PRN (11:57)
[2021-02-07] MEDS: VANCOMYCIN 1 GRAM (PRE-DOCKED) 1,000 MG/250 ML BAG IVPB SCH (13:23)
[2021-02-07] MEDS: PANTOPRAZOLE SODIUM 40 MG VIAL IVPB SCH ×2 (15:58→22:13)
[2021-02-07] MEDS ORDERED: PT OWN MED DRAWER 7, Y5N ONE ×2 (17:33→20:45)
[2021-02-07 18:34] LABS: ALLENS TEST POSITIVE; ARTERIAL BLD GAS O2 SATURATION 98.7 % (95-98); ARTERIAL BLOOD GAS BASE EXCESS -0.1 mmol/L (-2-2); ARTERIAL BLOOD GAS PO2 124.3 mmHg (80-100); ARTERIAL BLOOD GAS pH 7.474 (7.350-7.450)
[2021-02-07] MEDS: FLUCONAZOLE 100 MG/NS 50 ML IVPB SCH (18:51)
[2021-02-07] MEDS ORDERED: VANCOMYCIN 1 GM in D5W (PRE-DOCKED) 1,000 MG/250 ML IVPB SCH (21:00)
[2021-02-07 21:06] LABS: BASO % 0.1 % (0-2.0); EOS % 0.5 % (0-4.5); HEMATOCRIT 25.5 % (35.4-49); HEMOGLOBIN 8.7 GM/dL (11.7-16.9); LYMPH % 6.8 % (8-40); MCH 35.1 pg (25.7-33.7); MCHC 34.3 g/dl (32.0-35.9); MEAN CELL VOLUME 102.5 fl (80-96); MEAN PLT VOLUME 7.9 fl (7.5-11.1); NEUT % 89.6 % (42.8-82.8); PLATELET COUNT 111 10^3/uL (134-434); RBC 2.49 M/mm3 (4.00-5.60); RDW 15.1 % (11.9-15.9); WHITE BLOOD COUNT 5.5 K/mm3 (4.0-10.0)
[2021-02-07] MEDS ORDERED: MEROPENEM 1 GM in DEXTROSE 5%-WATER 100 ML IVPB SCH (21:26)
[2021-02-07 21:28] LABS: CALCIUM 7.4 mg/dL (8.5-10.1)
[2021-02-07 21:30] LABS: BLOOD UREA NITROGEN 18.9 mg/dL (7-18)
[2021-02-07 21:32] LABS: CREATININE 0.8 mg/dL (0.55-1.3); PHOSPHOROUS 1.5 mg/dL (2.5-4.9)
[2021-02-07 21:33] LABS: BILIRUBIN,TOTAL 2.4 mg/dL (0.2-1); TOT PROT 4.7 g/dl (6.4-8.2)
[2021-02-07] MEDS ORDERED: MEROPENEM 1 GM VIAL (RESTRICTED TO ID) IVPB ONE (22:01)
[2021-02-07] MEDS ORDERED: methylPREDNISolone NA SUCC 125 MG/2 ML VIAL IVPB ONE (22:19)
[2021-02-08] MEDS ORDERED: ACETAMINOPHEN 325 MG TABLET (FP) PO PRN ×2 (00:02→02:13)
[2021-02-08] MEDS ORDERED: ONDANSETRON 4 MG/2 ML VIAL IVPUSH PRN ×2 (00:23→02:13)
[2021-02-08] MEDS ORDERED: SODIUM CHLORIDE 1,000 ML IV SCH ×2 (00:23→02:13)
[2021-02-08 00:38] LABS: ARTERIAL BLD GAS O2 SATURATION 96.9 % (95-98); ARTERIAL BLOOD GAS BASE EXCESS 2.8 mmol/L (-2-2); ARTERIAL BLOOD GAS PO2 80.3 mmHg (80-100); ARTERIAL BLOOD GAS pH 7.508 (7.350-7.450)
[2021-02-08 00:41] LABS: ALLENS TEST POSITIVE
[2021-02-08] MEDS: ATOVAQUONE 750 MG/5 ML (UNIT-DOSE PACKAGING) PO SCH ×2 (01:01→18:37)
[2021-02-08] MEDS ORDERED: methylPREDNISolone NA SUCC 40 MG/1 ML VIAL IVPB SCH ×3 (02:00→03:00)
[2021-02-08] MEDS ORDERED: FUROSEMIDE 40 MG/4 ML INJECTABLE VIAL IVPUSH ONE ×2 (02:36→04:19)
[2021-02-08] MEDS: MUPIROCIN 2% TOPICAL OINTMENT FOR DECOLONIZATION NS SCH ×3 (02:47→22:15)
[2021-02-08] MEDS: methylPREDNISolone NA SUCC 40 MG/1 ML VIAL IVPB SCH ×4 (03:05→21:50)
[2021-02-08] MEDS ORDERED: MEROPENEM 1 GM VIAL (RESTRICTED TO ID) IVPB ONE ×3 (04:41→17:49)
[2021-02-08] MEDS ORDERED: DEXTROSE 5%-WATER 100 ML IVPB ONE ×3 (04:41→17:49)
[2021-02-08] MEDS ORDERED: ACYCLOVIR INJECTION 750 MG in DEXTROSE 5%-WATER - 250 ML IVPB SCH (04:45)
[2021-02-08] MEDS: ACYCLOVIR INJECTION 750 MG in DEXTROSE 5%-WATER - 250 ML IVPB SCH (04:52)
[2021-02-08] MEDS: MEROPENEM 1 GM in DEXTROSE 5%-WATER 100 ML IVPB SCH ×3 (05:08→17:50)
[2021-02-08] MEDS: INSULIN SLIDING SCALE (NOVOLOG) 1 VIAL SQ SCH ×4 (06:50→22:16)
[2021-02-08] MEDS ORDERED: INSULIN SLIDING SCALE (NOVOLOG) 1 VIAL SQ SCH (07:00)
[2021-02-08 07:16] LABS: BASO % 0.1 % (0-2.0); EOS % 0.2 % (0-4.5); HEMATOCRIT 24.7 % (35.4-49); HEMOGLOBIN 8.6 GM/dL (11.7-16.9); LYMPH % 5.3 % (8-40); MCH 35.7 pg (25.7-33.7); MCHC 34.9 g/dl (32.0-35.9); MEAN CELL VOLUME 102.2 fl (80-96); MEAN PLT VOLUME 8.5 fl (7.5-11.1); MONO % 3.3 % (3.8-10.2); NEUT % 91.1 % (42.8-82.8); PLATELET COUNT 119 10^3/uL (134-434); RBC 2.42 M/mm3 (4.00-5.60); RDW 15.1 % (11.9-15.9); WHITE BLOOD COUNT 5.1 K/mm3 (4.0-10.0)
[2021-02-08 07:26] LABS: BLOOD UREA NITROGEN 19.9 mg/dL (7-18)
[2021-02-08 07:29] LABS: CREATININE 0.9 mg/dL (0.55-1.3); PHOSPHOROUS 2.2 mg/dL (2.5-4.9)
[2021-02-08 07:32] LABS: TOT PROT 4.7 g/dl (6.4-8.2)
[2021-02-08 08:01] LABS: CALCIUM 7.4 mg/dL (8.5-10.1)
[2021-02-08] MEDS ORDERED: ASPIRIN COATED 81 MG TABLET.EC PO SCH (10:00)
[2021-02-08] MEDS ORDERED: PANTOPRAZOLE SODIUM 40 MG VIAL IVPB SCH (10:00)
[2021-02-08] MEDS ORDERED: ENOXAPARIN NA (PORCINE) 40 MG/0.4 ML DISP.SYRIN SQ SCH (10:00)
[2021-02-08] MEDS ORDERED: FLUCONAZOLE 100 MG/NS 50 ML IVPB SCH (10:00)
[2021-02-08] MEDS ORDERED: PT OWN MED DRAWER 7, Y5N ONE ×3 (10:33→17:48)
[2021-02-08] MEDS: ASPIRIN COATED 81 MG TABLET.EC PO SCH (10:39)
[2021-02-08] MEDS: PANTOPRAZOLE SODIUM 40 MG VIAL IVPB SCH ×2 (10:39→22:16)
[2021-02-08 10:41] LABS: ANISOCYTOSIS 1+; MACROCYTOSIS 0; OVALOCYTE 1+; PLATELET ESTIMATE DECREASED
[2021-02-08] MEDS: FLUCONAZOLE 100 MG/NS 50 ML IVPB SCH (10:41)
[2021-02-08] MEDS ORDERED: VANCOMYCIN 1 GRAM (PRE-DOCKED) 1,000 MG/250 ML BAG IVPB SCH (12:00)
[2021-02-08] MEDS: VANCOMYCIN 1 GRAM (PRE-DOCKED) 1,000 MG/250 ML BAG IVPB SCH (13:14)
[2021-02-08 17:07] LABS: IGA IMMUNOGLOBULIN 131 mg/dL (61-437); IGG QN IMMUNOGLOBULIN 491 mg/dL (603-1613); IGM QN SERUM 31 mg/dL (15-143)
[2021-02-08] MEDS: ENOXAPARIN NA (PORCINE) 40 MG/0.4 ML DISP.SYRIN SQ SCH (17:46)
[2021-02-08] MEDS ORDERED: ATOVAQUONE 750 MG/5 ML (UNIT-DOSE PACKAGING) PO SCH (18:00)
[2021-02-08] MEDS: GANCICLOVIR IVPB SCH (22:15)
[2021-02-08] MEDS: WATER IVPB SCH (22:15)
[2021-02-08] MEDS: DEXTROSE 5% IVPB SCH (22:15)
[2021-02-08] MEDS: CHLORHEXIDINE GLUCONATE 4% CLEANSER FOR DECOLONIZATION TP SCH (22:15)
[2021-02-09] MEDS: VANCOMYCIN 1 GRAM (PRE-DOCKED) 1,000 MG/250 ML BAG IVPB SCH ×2 (00:34→15:05)
[2021-02-09] MEDS ORDERED: MEROPENEM 1 GM VIAL (RESTRICTED TO ID) IVPB ONE ×3 (01:06→17:34)
[2021-02-09] MEDS ORDERED: DEXTROSE 5%-WATER 100 ML IVPB ONE ×3 (01:07→17:34)
[2021-02-09] MEDS: MEROPENEM 1 GM in DEXTROSE 5%-WATER 100 ML IVPB SCH ×3 (02:09→17:37)
[2021-02-09] MEDS: methylPREDNISolone NA SUCC 40 MG/1 ML VIAL IVPB SCH ×3 (03:06→21:37)
[2021-02-09] MEDS: INSULIN SLIDING SCALE (NOVOLOG) 1 VIAL SQ SCH ×4 (06:34→22:45)
[2021-02-09 06:44] LABS: EOS % 0.2 % (0-4.5); HEMATOCRIT 25.1 % (35.4-49); HEMOGLOBIN 8.9 GM/dL (11.7-16.9); LYMPH % 6.4 % (8-40); MCH 36.6 pg (25.7-33.7); MCHC 35.4 g/dl (32.0-35.9); MEAN CELL VOLUME 103.5 fl (80-96); MEAN PLT VOLUME 8.7 fl (7.5-11.1); MONO % 3.1 % (3.8-10.2); NEUT % 90.3 % (42.8-82.8); PLATELET COUNT 136 10^3/uL (134-434); RBC 2.43 M/mm3 (4.00-5.60); WHITE BLOOD COUNT 6.2 K/mm3 (4.0-10.0)
[2021-02-09 07:02] LABS: CALCIUM 7.6 mg/dL (8.5-10.1)
[2021-02-09 07:03] LABS: BLOOD UREA NITROGEN 26.2 mg/dL (7-18); MAGNESIUM 2.3 mg/dL (1.8-2.4)
[2021-02-09 07:06] LABS: CREATININE 0.9 mg/dL (0.55-1.3); PHOSPHOROUS 1.7 mg/dL (2.5-4.9)
[2021-02-09 07:07] LABS: BILIRUBIN,TOTAL 3.8 mg/dL (0.2-1); TOT PROT 4.7 g/dl (6.4-8.2)
[2021-02-09] MEDS: DEXMEDETOMIDINE IN 0.9 % NACL 400 MCG/100 ML VIAL IVPB SCH (09:50)
[2021-02-09] MEDS ORDERED: MYCOPHENOLATE MOFETIL 250 MG CAPSULE PO SCH (10:00)
[2021-02-09] MEDS: MUPIROCIN 2% TOPICAL OINTMENT FOR DECOLONIZATION NS SCH ×2 (10:14→21:37)
[2021-02-09] MEDS: ASPIRIN COATED 81 MG TABLET.EC PO SCH (10:15)
[2021-02-09] MEDS: ENOXAPARIN NA (PORCINE) 40 MG/0.4 ML DISP.SYRIN SQ SCH (10:15)
[2021-02-09] MEDS: PANTOPRAZOLE SODIUM 40 MG VIAL IVPB SCH ×2 (10:17→21:37)
[2021-02-09] MEDS ORDERED: INFLIXIMAB 100 MG/10 ML IVPB ONE (10:40)
[2021-02-09] MEDS ORDERED: PT OWN MED DRAWER 7, Y5N ONE (10:44)
[2021-02-09] MEDS ORDERED: ACETAMINOPHEN 325 MG TABLET (FP) PO PRN (10:45)
[2021-02-09] MEDS ORDERED: ACETAMINOPHEN 325 MG TABLET (FP) PO ONE (11:15)
[2021-02-09] MEDS ORDERED: ACETAMINOPHEN 1000 MG/100 ML VIAL IVPB ONE (11:30)
[2021-02-09] MEDS ORDERED: methylPREDNISolone NA SUCC 40 MG/1 ML VIAL IVPB ONE (11:30)
[2021-02-09] MEDS ORDERED: INFLIXIMAB ABDA IVPB ONE (12:00)
[2021-02-09] MEDS ORDERED: SODIUM CHLORIDE IVPB ONE (12:00)
[2021-02-09] MEDS: FLUCONAZOLE 100 MG/NS 50 ML IVPB SCH (12:28)
[2021-02-09] MEDS ORDERED: RAPID SEQUENCE INTUBATION KIT NR ONE (13:03)
[2021-02-09] MEDS ORDERED: MIDAZOLAM IN 0.9 % SOD.CHLORID 1 MG/1 ML PLAST..BAG ONE (13:22)
[2021-02-09] MEDS: MIDAZOLAM IN 0.9 % SOD.CHLORID 100 MG/100 ML PLAST..BAG IVPB SCH (13:40)
[2021-02-09] MEDS ORDERED: FENTANYL NS IVPB 500 MCG/100 ML BAG IVPB ONE (13:42)
[2021-02-09] MEDS ORDERED: ETOMIDATE 40 MG/20 ML VIAL IVPUSH ONE (13:44)
[2021-02-09] MEDS ORDERED: SUCCINYLCHOLINE CHLORIDE 200 MG/10 ML VIAL IVPUSH ONE (13:44)
[2021-02-09] MEDS: FENTANYL NS IVPB 500 MCG/100 ML BAG IVPB SCH ×2 (13:50→17:37)
[2021-02-09] MEDS: VECURONIUM BROMIDE 100 MG/100 ML BAG IVPB SCH (14:00)
[2021-02-09] MEDS: DEXTROSE 5% IVPB SCH ×2 (14:13→22:22)
[2021-02-09] MEDS: GANCICLOVIR IVPB SCH ×2 (14:13→22:22)
[2021-02-09] MEDS: WATER IVPB SCH ×2 (14:13→22:22)
[2021-02-09] MEDS ORDERED: PROPOFOL 200 MG/20 ML VIAL IVPUSH ONE (14:30)
[2021-02-09] MEDS: VASOPRESSIN 40 UNITS/100 ML BAG IV SCH (16:30)
[2021-02-09] MEDS: NOREPINEPHRINE NS PREMIX 16,000 MCG/500 ML BAG IVPB SCH (18:02)
[2021-02-09] MEDS: ATOVAQUONE 750 MG/5 ML (UNIT-DOSE PACKAGING) PO SCH (19:30)
[2021-02-09] MEDS ORDERED: methylPREDNISolone NA SUCC 40 MG/1 ML VIAL IVPUSH ONE (19:32)
[2021-02-09] MEDS: CHLORHEXIDINE GLUCONATE 4% CLEANSER FOR DECOLONIZATION TP SCH (21:37)
[2021-02-10] MEDS ORDERED: HEPARIN NA (PORCINE) 5,000 UNITS/ML 1ML VIAL IVPUSH PRN ×2 (00:02)
[2021-02-10] MEDS: HEPARIN SOD,PORK IN 0.45% NACL 25,000 UNITS/500 ML INFUS.BAG IVPB SCH (01:03)
[2021-02-10] MEDS: VANCOMYCIN 1 GRAM (PRE-DOCKED) 1,000 MG/250 ML BAG IVPB SCH ×2 (01:04→12:54)
[2021-02-10] MEDS ORDERED: METOPROLOL TARTRATE 5 MG/5 ML VIAL IVPUSH ONE (01:46)
[2021-02-10] MEDS ORDERED: MEROPENEM 1 GM VIAL (RESTRICTED TO ID) IVPB ONE ×4 (02:08→22:39)
[2021-02-10] MEDS ORDERED: DEXTROSE 5%-WATER 100 ML IVPB ONE ×4 (02:08→22:39)
[2021-02-10] MEDS: MEROPENEM 1 GM in DEXTROSE 5%-WATER 100 ML IVPB SCH ×3 (02:32→18:32)
[2021-02-10] MEDS: methylPREDNISolone NA SUCC 40 MG/1 ML VIAL IVPB SCH ×4 (03:45→21:26)
[2021-02-10 06:49] LABS: HEMATOCRIT 23.4 % (35.4-49); MCH 35.9 pg (25.7-33.7); MEAN CELL VOLUME 105.5 fl (80-96); MEAN PLT VOLUME 8.9 fl (7.5-11.1); PLATELET COUNT 150 10^3/uL (134-434); RBC 2.22 M/mm3 (4.00-5.60); RDW 15.4 % (11.9-15.9); WHITE BLOOD COUNT 7.9 K/mm3 (4.0-10.0)
[2021-02-10] MEDS: INSULIN SLIDING SCALE (NOVOLOG) 1 VIAL SQ SCH ×4 (06:50→21:26)
[2021-02-10 08:03] LABS: ALBUMIN 1.7 g/dl (3.4-5.0); BILIRUBIN,TOTAL 2.5 mg/dL (0.2-1); BLOOD UREA NITROGEN 47.2 mg/dL (7-18); CALCIUM 7.1 mg/dL (8.5-10.1); CREATININE 2.5 mg/dL (0.55-1.3); MAGNESIUM 2.3 mg/dL (1.8-2.4); TOT PROT 4.7 g/dl (6.4-8.2)
[2021-02-10] MEDS: VASOPRESSIN 40 UNITS/100 ML BAG IV SCH ×3 (08:47→18:33)
[2021-02-10 09:00] LABS: ANISOCYTOSIS 2+; MACROCYTOSIS 2+; OVALOCYTE 1+; PLATELET ESTIMATE NORMAL; TEAR DROP CELLS 1+
[2021-02-10] MEDS: MUPIROCIN 2% TOPICAL OINTMENT FOR DECOLONIZATION NS SCH ×2 (09:06→21:26)
[2021-02-10] MEDS: PANTOPRAZOLE SODIUM 40 MG VIAL IVPB SCH ×2 (09:06→21:26)
[2021-02-10] MEDS ORDERED: PT OWN MED DRAWER 7, Y5N ONE ×3 (09:23→20:51)
[2021-02-10] MEDS: FLUCONAZOLE 100 MG/NS 50 ML IVPB SCH (09:24)
[2021-02-10] MEDS: FENTANYL NS IVPB 500 MCG/100 ML BAG IVPB SCH ×2 (09:30→16:13)
[2021-02-10] MEDS: DEXMEDETOMIDINE IN 0.9 % NACL 400 MCG/100 ML VIAL IVPB SCH (10:47)
[2021-02-10] MEDS ORDERED: SODIUM CHLORIDE 1,000 ML IV STA (10:49)
[2021-02-10] MEDS: DEXTROSE 5% IVPB SCH (11:51)
[2021-02-10] MEDS: WATER IVPB SCH (11:51)
[2021-02-10] MEDS: GANCICLOVIR IVPB SCH (11:51)
[2021-02-10] MEDS: MIDAZOLAM IN 0.9 % SOD.CHLORID 100 MG/100 ML PLAST..BAG IVPB SCH ×2 (12:58→14:06)
[2021-02-10] MEDS: NOREPINEPHRINE NS PREMIX 16,000 MCG/500 ML BAG IVPB SCH (14:00)
[2021-02-10] MEDS: VECURONIUM BROMIDE 100 MG/100 ML BAG IVPB SCH (14:06)
[2021-02-10] MEDS ORDERED: LACTATED RINGERS SOLUTION 1,000 ML/1,000 ML INFUS.BAG IV STA (14:52)
[2021-02-10] MEDS: ATOVAQUONE 750 MG/5 ML (UNIT-DOSE PACKAGING) PO SCH (18:32)
[2021-02-10] MEDS: CHLORHEXIDINE GLUCONATE 4% CLEANSER FOR DECOLONIZATION TP SCH (21:26)
[2021-02-10 21:45] LABS: ARTERIAL BLD GAS O2 SATURATION 94.6 % (95-98); ARTERIAL BLOOD GAS BASE EXCESS -6.5 mmol/L (-2-2); ARTERIAL BLOOD GAS PO2 93.9 mmHg (80-100)
[2021-02-10 21:47] LABS: ALLENS TEST POSITIVE
[2021-02-10 21:48] LABS: VENT MODE A/C; VENT RATE 18
[2021-02-10 21:49] LABS: ARTERIAL BLOOD GAS pH 7.145 (7.350-7.450)
[2021-02-10 23:38] LABS: ARTERIAL BLD GAS O2 SATURATION 98.9 % (95-98); ARTERIAL BLOOD GAS BASE EXCESS -4.8 mmol/L (-2-2); ARTERIAL BLOOD GAS PO2 172.3 mmHg (80-100); ARTERIAL BLOOD GAS pH 7.252 (7.350-7.450)
[2021-02-10 23:39] LABS: ALLENS TEST POSITIVE; VENT MODE A/C; VENT RATE 30
[2021-02-11] MEDS: HEPARIN SOD,PORK IN 0.45% NACL 25,000 UNITS/500 ML INFUS.BAG IVPB SCH (00:11)
[2021-02-11] MEDS: MEROPENEM 1 GM in DEXTROSE 5%-WATER 100 ML IVPB SCH ×3 (01:05→18:23)
[2021-02-11] MEDS: FENTANYL NS IVPB 500 MCG/100 ML BAG IVPB SCH ×2 (01:08→12:57)
[2021-02-11 01:26] LABS: ARTERIAL BLD GAS O2 SATURATION 83.5 % (95-98); ARTERIAL BLOOD GAS BASE EXCESS -5.2 mmol/L (-2-2); ARTERIAL BLOOD GAS PO2 56.2 mmHg (80-100); ARTERIAL BLOOD GAS pH 7.236 (7.350-7.450)
[2021-02-11 01:27] LABS: ALLENS TEST POSITIVE; VENT MODE A/C; VENT RATE 30
[2021-02-11] MEDS: methylPREDNISolone NA SUCC 40 MG/1 ML VIAL IVPB SCH ×4 (02:00→21:46)
[2021-02-11] MEDS: INSULIN SLIDING SCALE (NOVOLOG) 1 VIAL SQ SCH ×4 (06:16→21:46)
[2021-02-11 06:25] LABS: ARTERIAL BLD GAS O2 SATURATION 98.9 % (95-98); ARTERIAL BLOOD GAS BASE EXCESS -7.2 mmol/L (-2-2); ARTERIAL BLOOD GAS PO2 164.4 mmHg (80-100); ARTERIAL BLOOD GAS pH 7.281 (7.350-7.450)
[2021-02-11 06:28] LABS: ALLENS TEST POSITIVE; VENT MODE V-A/C; VENT RATE 35
[2021-02-11 07:10] LABS: BASO % 0.2 % (0-2.0); EOS % 0.1 % (0-4.5); HEMATOCRIT 21.5 % (35.4-49); HEMOGLOBIN 7.3 GM/dL (11.7-16.9); LYMPH % 7.9 % (8-40); MCH 35.4 pg (25.7-33.7); MCHC 33.7 g/dl (32.0-35.9); MEAN CELL VOLUME 105.1 fl (80-96); MEAN PLT VOLUME 9.1 fl (7.5-11.1); NEUT % 89.8 % (42.8-82.8); PLATELET COUNT 126 10^3/uL (134-434); RBC 2.05 M/mm3 (4.00-5.60); RDW 15.4 % (11.9-15.9); WHITE BLOOD COUNT 10.2 K/mm3 (4.0-10.0)
[2021-02-11 07:37] LABS: CHLORIDE 103 mmol/L (98-107); SODIUM 135 mmol/L (136-145)
[2021-02-11 07:42] LABS: ALBUMIN 1.6 g/dl (3.4-5.0); ANION GAP 9 MMOL/L (8-16); BLOOD UREA NITROGEN 70.1 mg/dL (7-18); CO2 23 mmol/L (21-32)
[2021-02-11 07:43] LABS: GLUCOSE,RANDOM 189 mg/dL (74-106); MAGNESIUM 2.5 mg/dL (1.8-2.4)
[2021-02-11 07:45] LABS: CREATININE 4.1 mg/dL (0.55-1.3); SGOT/AST 81 U/L (15-37); SGPT/ALT 85 U/L (13-61)
[2021-02-11 07:46] LABS: PHOSPHOROUS 5.9 mg/dL (2.5-4.9)
[2021-02-11 07:47] LABS: BILIRUBIN,TOTAL 2.2 mg/dL (0.2-1); TOT PROT 4.4 g/dl (6.4-8.2)
[2021-02-11 07:48] LABS: ALK PHOS 111 U/L (45-117)
[2021-02-11 07:52] LABS: CALCIUM 6.8 mg/dL (8.5-10.1)
[2021-02-11] MEDS ORDERED: DEXTROSE 5%-WATER 100 ML IVPB ONE ×2 (08:50→17:27)
[2021-02-11] MEDS ORDERED: MEROPENEM 1 GM VIAL (RESTRICTED TO ID) IVPB ONE ×2 (08:50→17:27)
[2021-02-11] MEDS: PANTOPRAZOLE SODIUM 40 MG VIAL IVPB SCH ×2 (09:02→21:47)
[2021-02-11] MEDS: MUPIROCIN 2% TOPICAL OINTMENT FOR DECOLONIZATION NS SCH ×2 (09:02→21:46)
[2021-02-11] MEDS: DEXMEDETOMIDINE IN 0.9 % NACL 400 MCG/100 ML VIAL IVPB SCH (09:51)
[2021-02-11] MEDS: FLUCONAZOLE 100 MG/NS 50 ML IVPB SCH (09:52)
[2021-02-11 10:52] LABS: ARTERIAL BLOOD GAS PO2 133.2 mmHg (80-100)
[2021-02-11 10:56] LABS: ALLENS TEST POSITIVE; PT'S TEMP 97.8; VENT MODE A/C; VENT RATE 24
[2021-02-11 10:58] LABS: ARTERIAL BLOOD GAS pH 7.195 (7.350-7.450)
[2021-02-11] MEDS: LACTATED RINGERS SOLUTION 1,000 ML/1,000 ML INFUS.BAG IV SCH (11:42)
[2021-02-11] MEDS: FLUDROCORTISONE ACETATE 0.1 MG TABLET (FP) PO SCH (11:55)
[2021-02-11] MEDS: NOREPINEPHRINE NS PREMIX 16,000 MCG/500 ML BAG IVPB SCH (11:59)
[2021-02-11] MEDS ORDERED: WATER IVPB SCH (13:15)
[2021-02-11] MEDS ORDERED: DEXTROSE 5% IVPB SCH (13:15)
[2021-02-11] MEDS ORDERED: GANCICLOVIR IVPB SCH (13:15)
[2021-02-11 13:31] VITALS: BMI 28.3
[2021-02-11] MEDS: PROPOFOL 1,000,000 MCG/100 ML VIAL IVPB SCH (13:54)
[2021-02-11] MEDS: VECURONIUM BROMIDE 100 MG/100 ML BAG IVPB SCH (14:44)
[2021-02-11] MEDS: MIDAZOLAM IN 0.9 % SOD.CHLORID 100 MG/100 ML PLAST..BAG IVPB SCH (14:45)
[2021-02-11] MEDS ORDERED: PT OWN MED DRAWER 7, Y5N ONE (17:28)
[2021-02-11] MEDS: ATOVAQUONE 750 MG/5 ML (UNIT-DOSE PACKAGING) PO SCH (18:23)
[2021-02-11] MEDS: ASPIRIN COATED 81 MG TABLET.EC PO SCH (19:35)
[2021-02-11] MEDS: ACYCLOVIR INJECTION 750 MG in DEXTROSE 5%-WATER - 250 ML IVPB SCH (19:36)
[2021-02-11] MEDS: VANCOMYCIN 1 GRAM (PRE-DOCKED) 1,000 MG/250 ML BAG IVPB SCH (19:36)
[2021-02-11] MEDS: CHLORHEXIDINE GLUCONATE 4% CLEANSER FOR DECOLONIZATION TP SCH (21:46)
[2021-02-12] MEDS ORDERED: DEXTROSE 5%-WATER 100 ML IVPB ONE ×3 (03:15→21:26)
[2021-02-12] MEDS: methylPREDNISolone NA SUCC 40 MG/1 ML VIAL IVPB SCH ×4 (03:15→21:34)
[2021-02-12] MEDS ORDERED: MEROPENEM 1 GM VIAL (RESTRICTED TO ID) IVPB ONE ×2 (03:15→10:09)
[2021-02-12] MEDS: MEROPENEM 1 GM in DEXTROSE 5%-WATER 100 ML IVPB SCH ×4 (03:20→11:00)
[2021-02-12] MEDS: HEPARIN SOD,PORK IN 0.45% NACL 25,000 UNITS/500 ML INFUS.BAG IVPB SCH (04:19)
[2021-02-12 06:43] LABS: ARTERIAL BLD GAS O2 SATURATION 96.1 % (95-98); ARTERIAL BLOOD GAS BASE EXCESS -12.3 mmol/L (-2-2); ARTERIAL BLOOD GAS PO2 104.3 mmHg (80-100)
[2021-02-12 06:46] LABS: ALLENS TEST POSITIVE
[2021-02-12 06:47] LABS: VENT MODE A/C; VENT RATE 28
[2021-02-12 06:48] LABS: ARTERIAL BLOOD GAS pH 7.151 (7.350-7.450)
[2021-02-12] MEDS: PROPOFOL 1,000,000 MCG/100 ML VIAL IVPB SCH ×2 (07:00→14:00)
[2021-02-12] MEDS: INSULIN SLIDING SCALE (NOVOLOG) 1 VIAL SQ SCH ×4 (07:24→21:36)
[2021-02-12 07:58] LABS: HEMATOCRIT 19.7 % (35.4-49); MCH 34.8 pg (25.7-33.7); MCHC 32.8 g/dl (32.0-35.9); MEAN CELL VOLUME 106.3 fl (80-96); MEAN PLT VOLUME 8.8 fl (7.5-11.1); PLATELET COUNT 126 10^3/uL (134-434); RBC 1.85 M/mm3 (4.00-5.60); RDW 15.3 % (11.9-15.9)
[2021-02-12 08:00] LABS: HEMOGLOBIN 6.4 GM/dL (11.7-16.9)
[2021-02-12 08:17] LABS: CHLORIDE 103 mmol/L (98-107); SODIUM 134 mmol/L (136-145)
[2021-02-12 08:35] LABS: ALBUMIN 1.4 g/dl (3.4-5.0)
[2021-02-12 08:39] LABS: ANION GAP 14 MMOL/L (8-16); CO2 17 mmol/L (21-32); GLUCOSE,RANDOM 256 mg/dL (74-106); MAGNESIUM 2.4 mg/dL (1.8-2.4)
[2021-02-12 08:41] LABS: BILIRUBIN,TOTAL 2.2 mg/dL (0.2-1); CREATININE 5.3 mg/dL (0.55-1.3); SGOT/AST 101 U/L (15-37); SGPT/ALT 57 U/L (13-61)
[2021-02-12 08:42] LABS: TOT PROT 4.1 g/dl (6.4-8.2)
[2021-02-12 08:47] LABS: ALK PHOS 172 U/L (45-117); BLOOD UREA NITROGEN 99.3 mg/dL (7-18); CALCIUM 6.2 mg/dL (8.5-10.1)
[2021-02-12 10:10] LABS: ANISOCYTOSIS 1+; MACROCYTOSIS 0; OVALOCYTE 1+; PLATELET ESTIMATE DECREASED; TEAR DROP CELLS 1+
[2021-02-12 10:13] LABS: WHITE BLOOD COUNT 11.6 K/mm3 (4.0-10.0)
[2021-02-12 10:14] LABS: CORRECTED WBC 9.35 K/mm3
[2021-02-12] MEDS: FLUDROCORTISONE ACETATE 0.1 MG TABLET (FP) PO SCH (10:16)
[2021-02-12] MEDS: MUPIROCIN 2% TOPICAL OINTMENT FOR DECOLONIZATION NS SCH ×2 (10:20→21:36)
[2021-02-12] MEDS: PANTOPRAZOLE SODIUM 40 MG VIAL IVPB SCH ×2 (10:21→21:34)
[2021-02-12] MEDS ORDERED: SODIUM CHLORIDE 250 ML IV PRN (11:11)
[2021-02-12] MEDS ORDERED: ALBUMIN HUMAN 25% 12.5 GM/50 ML VIAL IVPB SCH (11:15)
[2021-02-12] MEDS: NOREPINEPHRINE NS PREMIX 16,000 MCG/500 ML BAG IVPB SCH ×2 (14:17→21:35)
[2021-02-12] MEDS: LACTATED RINGERS SOLUTION 1,000 ML/1,000 ML INFUS.BAG IV SCH ×2 (14:38→16:49)
[2021-02-12] MEDS ORDERED: PT OWN MED DRAWER 7, Y5N ONE (16:47)
[2021-02-12] MEDS: FLUCONAZOLE 100 MG/NS 50 ML IVPB SCH (16:48)
[2021-02-12] MEDS: MEROPENEM 500 MG in DEXTROSE 5%-WATER 100 ML IVPB SCH ×2 (16:49→21:36)
[2021-02-12] MEDS: MIDAZOLAM IN 0.9 % SOD.CHLORID 100 MG/100 ML PLAST..BAG IVPB SCH (16:49)
[2021-02-12] MEDS: DEXMEDETOMIDINE IN 0.9 % NACL 400 MCG/100 ML VIAL IVPB SCH (16:50)
[2021-02-12 16:57] LABS: HEMATOCRIT 34.5 % (35.4-49); HEMOGLOBIN 11.5 GM/dL (11.7-16.9); MCH 33.2 pg (25.7-33.7); MCHC 33.4 g/dl (32.0-35.9); MEAN CELL VOLUME 99.3 fl (80-96); MEAN PLT VOLUME 8.9 fl (7.5-11.1); PLATELET COUNT 120 10^3/uL (134-434); RBC 3.47 M/mm3 (4.00-5.60); RDW 17.3 % (11.9-15.9); WHITE BLOOD COUNT 12.7 K/mm3 (4.0-10.0)
[2021-02-12 18:10] LABS: ANISOCYTOSIS 1+; CORRECTED WBC 10.33 K/mm3; MACROCYTOSIS 1+; OVALOCYTE 1+; PLATELET ESTIMATE DECREASED; TEAR DROP CELLS 1+
[2021-02-12] MEDS ORDERED: POLYETHYLENE GLYCOL (HEALTHYLAX) 3350 17 GM PACKET PO ONE (18:27)
[2021-02-12] MEDS: ATOVAQUONE 750 MG/5 ML (UNIT-DOSE PACKAGING) PO SCH (18:34)
[2021-02-12] MEDS ORDERED: MEROPENEM 500 MG VIAL (RESTRICTED TO ID) IVPB ONE (21:26)
[2021-02-12] MEDS: VASOPRESSIN 40 UNITS/100 ML BAG IV SCH (21:35)
[2021-02-12] MEDS: CHLORHEXIDINE GLUCONATE 4% CLEANSER FOR DECOLONIZATION TP SCH (21:36)
[2021-02-13] MEDS: methylPREDNISolone NA SUCC 40 MG/1 ML VIAL IVPB SCH ×4 (03:01→21:13)
[2021-02-13] MEDS: HEPARIN SOD,PORK IN 0.45% NACL 25,000 UNITS/500 ML INFUS.BAG IVPB SCH (03:01)
[2021-02-13] MEDS: INSULIN SLIDING SCALE (NOVOLOG) 1 VIAL SQ SCH ×4 (06:07→21:24)
[2021-02-13 07:40] LABS: HEMATOCRIT 26.1 % (35.4-49); HEMOGLOBIN 9.2 GM/dL (11.7-16.9); MCH 35.5 pg (25.7-33.7); MEAN CELL VOLUME 101.4 fl (80-96); MEAN PLT VOLUME 9.5 fl (7.5-11.1); PLATELET COUNT 88 10^3/uL (134-434); RBC 2.58 M/mm3 (4.00-5.60); RDW 19.1 % (11.9-15.9)
[2021-02-13] MEDS ORDERED: SODIUM CHLORIDE 250 ML IV PRN (08:47)
[2021-02-13 09:17] LABS: CHLORIDE 102 mmol/L (98-107); SODIUM 135 mmol/L (136-145)
[2021-02-13 09:19] LABS: ANION GAP 18 MMOL/L (8-16); BLOOD UREA NITROGEN 93.4 mg/dL (7-18); CO2 15 mmol/L (21-32); GLUCOSE,RANDOM 245 mg/dL (74-106)
[2021-02-13 09:20] LABS: ALBUMIN 1.2 g/dl (3.4-5.0); MAGNESIUM 2.2 mg/dL (1.8-2.4)
[2021-02-13 09:22] LABS: CREATININE 5.2 mg/dL (0.55-1.3)
[2021-02-13 09:23] LABS: SGOT/AST 276 U/L (15-37); SGPT/ALT 73 U/L (13-61)
[2021-02-13] MEDS ORDERED: MEROPENEM 500 MG VIAL (RESTRICTED TO ID) IVPB ONE ×2 (09:23→19:53)
[2021-02-13] MEDS ORDERED: DEXTROSE 5%-WATER 100 ML IVPB ONE ×2 (09:23→19:53)
[2021-02-13 09:24] LABS: BILIRUBIN,TOTAL 2.7 mg/dL (0.2-1); TOT PROT 3.8 g/dl (6.4-8.2)
[2021-02-13] MEDS: PANTOPRAZOLE SODIUM 40 MG VIAL IVPB SCH ×2 (09:28→21:13)
[2021-02-13] MEDS: FLUDROCORTISONE ACETATE 0.1 MG TABLET (FP) PO SCH (09:28)
[2021-02-13 09:29] LABS: ALK PHOS 306 U/L (45-117); CALCIUM 6.3 mg/dL (8.5-10.1); PHOSPHOROUS > 9.0 mg/dL (2.5-4.9)
[2021-02-13] MEDS: MEROPENEM 500 MG in DEXTROSE 5%-WATER 100 ML IVPB SCH ×2 (09:29→21:15)
[2021-02-13] MEDS ORDERED: PT OWN MED DRAWER 7, Y5N ONE ×2 (09:33→16:04)
[2021-02-13] MEDS ORDERED: CASPOFUNGIN ACETATE 70 MG in SODIUM CHLORIDE 250 ML IVPB ONE (10:19)
[2021-02-13] MEDS: FLUCONAZOLE 100 MG/NS 50 ML IVPB SCH (10:43)
[2021-02-13] MEDS: DEXMEDETOMIDINE IN 0.9 % NACL 400 MCG/100 ML VIAL IVPB SCH (10:49)
[2021-02-13] MEDS: ALBUMIN HUMAN 25% 12.5 GM/50 ML VIAL IVPB SCH ×4 (11:30→13:00)
[2021-02-13] MEDS: LACTATED RINGERS SOLUTION 1,000 ML/1,000 ML INFUS.BAG IV SCH (11:52)
[2021-02-13 11:58] LABS: WHITE BLOOD COUNT 18.8 K/mm3 (4.0-10.0)
[2021-02-13] MEDS: MIDAZOLAM IN 0.9 % SOD.CHLORID 100 MG/100 ML PLAST..BAG IVPB SCH (12:00)
[2021-02-13] MEDS: PROPOFOL 1,000,000 MCG/100 ML VIAL IVPB SCH (12:20)
[2021-02-13 12:42] LABS: ANISOCYTOSIS 1+; CORRECTED WBC 14.46 K/mm3; MACROCYTOSIS 1+; PLATELET ESTIMATE DECREASED; TEAR DROP CELLS 1+
[2021-02-13 12:47] LABS: TOXIC GRANULATION FEW
[2021-02-13] MEDS ORDERED: SULFAMETHOXAZOLE IVPB SCH (15:00)
[2021-02-13] MEDS ORDERED: WATER IVPB SCH (15:00)
[2021-02-13] MEDS ORDERED: SULFAMETHOXAZOLE 80 MG/TRIMETHOPRIM 16 MG/ML VIAL IVPB SCH (15:00)
[2021-02-13] MEDS ORDERED: DEXTROSE 5% IVPB SCH (15:00)
[2021-02-13] MEDS ORDERED: TRIMETHOPRIM IVPB SCH (15:00)
[2021-02-13] MEDS: NOREPINEPHRINE NS PREMIX 16,000 MCG/500 ML BAG IVPB SCH (17:51)
[2021-02-13] MEDS ORDERED: WATER IVPB ONE (18:00)
[2021-02-13] MEDS ORDERED: GANCICLOVIR IVPB ONE (18:00)
[2021-02-13] MEDS ORDERED: DEXTROSE 5% IVPB ONE (18:00)
[2021-02-13 18:02] VITALS: TEMP 95.3
[2021-02-13] MEDS: CHLORHEXIDINE GLUCONATE 4% CLEANSER FOR DECOLONIZATION TP SCH (21:13)
[2021-02-13] MEDS ORDERED: DEXTROSE 50%-WATER 25 GM/50 ML DISP.SYRIN ONE (21:18)
[2021-02-13] MEDS ORDERED: DEXTROSE 50%-WATER - 25 GM/50 ML VIAL IVPUSH ONE (21:19)
[2021-02-14] MEDS: HEPARIN SOD,PORK IN 0.45% NACL 25,000 UNITS/500 ML INFUS.BAG IVPB SCH (01:16)
[2021-02-14] MEDS: methylPREDNISolone NA SUCC 40 MG/1 ML VIAL IVPB SCH (02:07)
[2021-02-14 03:36] VITALS: PULSE 69
[2021-02-14 04:01] VITALS: BP 92/51
[2021-02-14 05:15] LABS: BASO % 0.3 % (0-2.0); EOS % 8.6 % (0-4.5); HEMATOCRIT 20.6 % (35.4-49); HEMOGLOBIN 7.6 GM/dL (11.7-16.9); LYMPH % 12.9 % (8-40); MCH 38.3 pg (25.7-33.7); MCHC 36.8 g/dl (32.0-35.9); MEAN CELL VOLUME 104.3 fl (80-96); MEAN PLT VOLUME 9.2 fl (7.5-11.1); NEUT % 77.2 % (42.8-82.8); PLATELET COUNT 98 10^3/uL (134-434); RBC 1.98 M/mm3 (4.00-5.60); RDW 20.7 % (11.9-15.9)
[2021-02-14 05:31] LABS: CHLORIDE 98 mmol/L (98-107); SODIUM 132 mmol/L (136-145)
[2021-02-14 05:33] LABS: CO2 12 mmol/L (21-32); GLUCOSE,RANDOM 56 mg/dL (74-106)
[2021-02-14 05:34] LABS: MAGNESIUM 2.9 mg/dL (1.8-2.4)
[2021-02-14 05:36] LABS: CREATININE 4.6 mg/dL (0.55-1.3)
[2021-02-14 05:38] LABS: BILIRUBIN,TOTAL 3.9 mg/dL (0.2-1)
[2021-02-14 05:56] LABS: ALBUMIN 1.6 g/dl (3.4-5.0); ALK PHOS 688 U/L (45-117); ANION GAP 22 MMOL/L (8-16); BLOOD UREA NITROGEN 61.7 mg/dL (7-18); CALCIUM 6.1 mg/dL (8.5-10.1); PHOSPHOROUS 12.9 mg/dL (2.5-4.9); SGPT/ALT 4154 U/L (13-61); TOT PROT 3.7 g/dl (6.4-8.2)
[2021-02-14 11:31] LABS: ANISOCYTOSIS 1+; MACROCYTOSIS 0; PLATELET ESTIMATE DECREASED; TEAR DROP CELLS 1+
[2021-02-14 11:32] LABS: WHITE BLOOD COUNT 17.4 K/mm3 (4.0-10.0)
[2021-02-14 11:33] LABS: CORRECTED WBC 13.18 K/mm3
== END 2021-02-14 07:00 | disposition expired | DRG 870 ==
LOC: JER 15:47 → JERBED 21:06 → J7W 23:41 → JICU 02-07 23:38
PROVIDERS: ADMIT Internal Medicine; ATTEND Internal Medicine
PROC: 5A1955Z Respiratory Ventilation, Greater than 96 Consecutive Hours (ICD-10-PCS; principal; 2021-02-09)
PROC: 0BH17EZ Insertion of Endotracheal Airway into Trachea, Via Natural or Artificial Opening (ICD-10-PCS; 2021-02-09)
PROC: 05HN33Z Insertion of Infusion Device into Left Internal Jugular Vein, Percutaneous Approach (ICD-10-PCS; 2021-02-09)
PROC: B544ZZA Ultrasonography of Left Jugular Veins, Guidance (ICD-10-PCS; 2021-02-09)
PROC: 05HM33Z Insertion of Infusion Device into Right Internal Jugular Vein, Percutaneous Approach (ICD-10-PCS; 2021-02-12)
PROC: B543ZZA Ultrasonography of Right Jugular Veins, Guidance (ICD-10-PCS; 2021-02-12)
PROC: 30233N1 Transfusion of Nonautologous Red Blood Cells into Peripheral Vein, Percutaneous Approach (ICD-10-PCS; 2021-02-12)
PROC: 5A1D70Z Performance of Urinary Filtration, Intermittent, Less than 6 Hours Per Day (ICD-10-PCS; 2021-02-13)
DX: A41.9 Sepsis, unspecified organism (principal); J18.9 Pneumonia, unspecified organism; J80 Acute respiratory distress syndrome; N17.0 Acute kidney failure with tubular necrosis; R65.21 Severe sepsis with septic shock; J96.02 Acute respiratory failure with hypercapnia; A09 Infectious gastroenteritis and colitis, unspecified; E87.2 Acidosis; B37.0 Candidal stomatitis; E87.3 Alkalosis; I48.19 Other persistent atrial fibrillation; N39.0 Urinary tract infection, site not specified; I82.C11 Acute embolism and thrombosis of right internal jugular vein; J81.1 Chronic pulmonary edema; N17.9 Acute kidney failure, unspecified; C79.9 Secondary malignant neoplasm of unspecified site; C43.9 Malignant melanoma of skin, unspecified; I12.9 Hypertensive chronic kidney disease with stage 1 through stage 4 chronic kidney disease, or unspecified chronic kidney disease; D69.6 Thrombocytopenia, unspecified; E03.9 Hypothyroidism, unspecified; E78.5 Hyperlipidemia, unspecified; I51.7 Cardiomegaly; R73.9 Hyperglycemia, unspecified; N18.9 Chronic kidney disease, unspecified; K71.6 Toxic liver disease with hepatitis, not elsewhere classified; T50.905A Adverse effect of unspecified drugs, medicaments and biological substances, initial encounter; N30.90 Cystitis, unspecified without hematuria; I46.9 Cardiac arrest, cause unspecified; E87.70 Fluid overload, unspecified; E87.5 Hyperkalemia; I95.9 Hypotension, unspecified; R00.0 Tachycardia, unspecified; D64.9 Anemia, unspecified
CPT/HCPCS: 31500; 36415; 36430; 36600; 71045-TC-FY; 71275-TC; 74177-TC; 76536-TC; 80048; 80053; 81003; 82550; 82553; 82784; 82803; 82962; 83605; 83615; 83735; 84100; 84439; 84443; 84484; 85025; 85610; 85730; 86480; 86706; 86708; 86850; 86900; 86901; 86922; 87040; 87070; 87077; 87086; 87102; 87116; 87177; 87186; 87205; 87206; 87209; 87210; 87252; 87281; 87340; 87449; 87497; 87517; 87804; 87899; 87902; 93005; 93010; 93306-TC; 94002; 94660; 99285-25; C9803; G0480; J0131; J1644; J3490; J7517; P9047; P9058; Q9967; U0003; U0005